=== PATIENT | male | born 1970 | race African-American/Black ===

== ENCOUNTER 2017-02-02 09:44 | Inpatient (IN) | payer OTHER ==
[2017-02-02 10:18] VITALS: BMI 24.1
--- NOTE | 2017-02-02 12:49 | HP ---
COWS - Scale Resting Pulse: 0= [place] 80 or Below Sweatin=Flushed/Facial Moisture Restless Observation: 3= Extraneous Movement Pupil Size: 2= Moderately Dilated Bone or Joint Aches: 2= Severe Diffuse Aches Runny Nose/ Eye Tearin= Runny Nose/Eyes GI Upset > 30mins: 3= Vomiting/Diarrhea Tremor Observation: 2= Slight Tremor Visible Yawning Observation: 2= >3x During Session Anxiety or Irritability: 2=Irritable/Anxious Goose Flesh Skin: 0=Smooth Skin COWS Score: 20 CIWA Score - CIWA Score Nausea/Vomitin Muscle Tremors: 3 Anxiety: 3 Agitation: 3 Paroxysmal Sweats: 2 Orientation: 0-Oriented Tacttile Disturbances: 2-Mild Itch/Numbness/Burn Auditory Disturbances: 2-Mild Harshness/Frighten Visual Disturbances: 1-Very Mild Sensitivity Headache: 2-Mild CIWA-Ar Total Score: 21 Admission ROS BHS - HPI Chief Complaint: I NEED HELP TO STOP USING HEROIN,ALCOHOL,COCAINE AND MARIJUANA Allergies/Adverse Reactions: Allergies Allergy/AdvReac Type Severity Reaction Status Date / Time shellfish derived Allergy Severe Hives Verified 02/02/17 10:35 No Known Drug Allergies Allergy Verified 02/02/17 14:09 NKDA Allergy Uncoded 02/02/17 10:35 History of Present Illness: THIS 46 YEARS OLD MALE WITH HEROIN,ALCOHOL,COCAINE AND MARIJUANA DEPENDENCE, SEEKING DETOX,LAST 2015 DID NOT RECALL FACILITY DEPRESSION NICOTINE DEPENDENCE WEIGHT LOSS NO SIGNIFICANT PERIOD OF SOBRIETY Exam Limitations: No Limitations - Ebola screening Have you traveled outside of the country in the last 21 days: No Have you had contact with anyone from an Ebola affected area: No Have you been sick,other than usual withdrawal symptoms: No Do you have a fever: No - Review of Systems Constitutional: Chills, Loss of Appetite, Malaise, Night Sweats, Changes in sleep, Weakness EENT: reports: Tearing, Nose Congestion Respiratory: reports: No Symptoms reported Cardiac: reports: No Symptoms Reported GI: reports: Diarrhea, Nausea, Vomiting, Abdominal cramping : reports: No Symptoms Reported Musculoskeletal: reports: Back Pain, Joint Pain, Muscle Pain, Joint Stiffness Integumentary: reports: Dryness Endocrine: reports: No Symptoms Reported Hematology: reports: No Symptoms Reported Psychiatric: reports: Depressed Patient History - Patient Medical History Hx Anemia: No Hx Asthma: No Hx Chronic Obstructive Pulmonary Disease (COPD): No Hx Cancer: No Hx Cardiac Disorders: No Hx Hypertension: No Hx Pacemaker: No HX Cerebrovascular Accident: No Hx Seizures: No Hx Dementia: No Hx Diabetes: No Hx Gastrointestinal Disorders: No Hx Liver Disease: No Hx Genitourinary Disorders: No Hx Sexually Transmitted Disorders: No Hx Renal Disease (ESRD): No Hx Thyroid Disease: No Hx Human Immunodeficiency Virus (HIV): No (LAST 2015 NEGATIVE) Hx Hepatitis C: No Hx Depression: Yes Hx Suicide Attempt: No Hx Bipolar Disorder: No Hx Schizophrenia: Yes (schizoaffective disorder) Other Medical History: NO SUICIDAL,NO HOMICDIAL - Patient Surgical History Past Surgical History: No Hx Neurologic Surgery: No Hx Cataract Extraction: No Hx Cardiac Surgery: No Hx Lung Surgery: No Hx Breast Surgery: No Hx Breast Biopsy: No Hx Abdominal Surgery: No Hx Appendectomy: No Hx Cholecystectomy: No Hx Genitourinary Surgery: No Hx Section: No Hx Orthopedic Surgery: No Anesthesia Reaction: No - PPD History Previous Implant?: Yes Documented Results: Negative w/o proof Implanted On Prior [facility] Admission?: No PPD to be Administered?: Yes - Smoking Cessation Smoking history: Current every day smoker Have you smoked in the past 12 months: Yes Aproximately how many cigarettes per day: 20 Hx Chewing Tobacco Use: No Initiated information on smoking cessation: Yes 'Breaking Loose' booklet given: 02/02/17 - Substance & Tx. History Hx Alcohol Use: Yes Hx Substance Use: Yes Substance Use Type: Alcohol, Cocaine, Heroin - Substances Abused Heroin Route: Injection Frequency: Daily Amount used: 20 bags Age of first use: 19 Date of Last Use: 02/01/17 Crack Route: Smoking Frequency: Daily Amount used: $200 Age of first use: 18 Date of Last Use: 02/01/17 Alcohol-vodka Route: Oral Frequency: Daily Amount used: 2 pts. Age of first use: 19 Date of Last Use: 01/31/17 Marijuana/Hashish Route: Smoking Frequency: 3-6 times per week (10$) Amount used: 10 Age of first use: 16 Date of Last Use: 02/01/17 Family Disease History - Family Disease History Family History: Denies Admission Physical Exam BHS - Vital Signs Vital Signs: Vital Signs - 24 hr 02/02/17 10:13 Temperature 97.0 F L Pulse Rate 67 Respiratory 20 Rate Blood Pressure 151/86 - Physical General Appearance: Yes: Moderate Distress, Tremorous, Irritable, Sweating, Anxious HEENTM: Yes: Normal ENT Inspection, HUGO, Pharynx Normal Respiratory: Yes: Lungs Clear, Normal Breath Sounds, No Respiratory Distress Neck: Yes: Within Normal Limits, Supple, Trachea in good position Breast: Yes: Within Normal Limits Cardiology: Yes: Within Normal Limits, Regular Rhythm, Regular Rate, S1, S2 Abdominal: Yes: Normal Bowel Sounds, Non Tender, Flat, Soft Genitourinary: Yes: Within Normal Limits Back: Yes: Within Normal Limits, Muscle Spasm Musculoskeletal: Yes: Back pain, Muscle Pain Extremities: Yes: Within Normal Limits, Tremors Neurological: Yes: bottle hop II-XII NML intact, Fully Oriented, Alert, Motor Strength 5/5 Integumentary: Yes: Dry Lymphatic: Yes: Within Normal Limits - Diagnostic (1) Opioid dependence with withdrawal Current Visit: Yes Status: Acute (2) Alcohol dependence with uncomplicated withdrawal Current Visit: Yes Status: Acute (3) Cocaine dependence Current Visit: Yes Status: Acute (4) Cannabis dependence Current Visit: Yes Status: Acute (5) Weight loss Current Visit: Yes Status: Acute (6) Schizophrenia Current Visit: Yes Status: Acute (7) Low back pain Current Visit: Yes Status: Acute Cleared for Admission [facility] - Detox or Rehab [facility] Level of Care: Medically Managed Detox Regimen/Protocol: Methadone/Librium S Breath Alcohol Content Breath Alcohol Content: 0 Urine Drug Screen - Results Drug Screen Negative: No Urine Drug Screen Results: THC-Marijuana, SUZANNE-Cocaine, OPI-Opiates
[2017-02-02] MEDS ORDERED: MAGNESIUM HYDROX 2400MG/30ML ORAL SUSPENSION 30 ML CUP PO PRN (12:59)
[2017-02-02] MEDS ORDERED: MAGNESIUM CITRATE 300 ML BOTTLE PO PRN (12:59)
[2017-02-02] MEDS ORDERED: IBUPROFEN 400 MG TABLET (FP) PO PRN (12:59)
[2017-02-02] MEDS ORDERED: LOPERAMIDE HCL 2 MG CAPSULE PO PRN (12:59)
[2017-02-02] MEDS ORDERED: P-EPHED 60MG/TRIPROLIDI 2.5MG TABLET PO PRN (12:59)
[2017-02-02] MEDS ORDERED: MENTHOL/PHENOL 1 EACH UD MM PRN (12:59)
[2017-02-02] MEDS ORDERED: guaiFENesin/D-METHORPHAN HB 10 ML UNIT-DOSE CUPS PO PRN (12:59)
[2017-02-02] MEDS ORDERED: MAG HYDROX/AL HYDROX/SIMETH 30 ML UNIT-DOSE CUP PO PRN (12:59)
[2017-02-02] MEDS: NICOTINE 21 MG/24 HOURS TOPICAL PATCH TD SCH (14:13)
[2017-02-02] MEDS: hydrOXYzine PAMOATE 25 MG CAPSULE (FP) PO PRN (14:17)
[2017-02-02] MEDS ORDERED: chlordiazePOXIDE HCL 25 MG CAPSULE PO ONE (14:30)
[2017-02-02] MEDS ORDERED: METHADONE HCL 10 MG TABLET (FOR DETOX USE ONLY) PO ONE ×2 (14:30→23:00)
[2017-02-02] MEDS: chlordiazePOXIDE HCL 25 MG CAPSULE PO SCH ×2 (17:08→22:17)
--- NOTE | 2017-02-02 17:34 | CONSULT ---
[facility] Psychiatric Consult - Data Date of interview: 02/02/17 Admission source: [facility] Identifying data: First admission to [facility] for this 46 y/o AA male seeking detox treatment on for alcohol,heroin,cocaine and marihuana dependence.Patient is single,father of two,homeless,unemployed and supported on Public Assistance. Substance Abuse History: Confirmed by patient in this session. Smoking history : Current every day smoker. Have you smoked in the past 12 months: Yes. Aproximately how many cigarettes per day: 20. Hx Chewing Tobacco Use: No. Initiated information on smoking cessation: Yes. 'Breaking Loose' booklet given : 02/02/17. - Substance & Tx. History. Hx Alcohol Use: Yes. Hx Substance Use : Yes. Substance Use Type: Alcohol, Cocaine, Heroin. - Substances Abused. Heroin. Route: Injection. Frequency: Daily. Amount used: 20 bags. Age of first use: 19. Date of Last Use: 02/01/17. Crack. Route: Smoking. Frequency: Daily. Amount used: $200. Age of first use: 18. Date of Last Use: 02/01/17. Alcohol-vodka. Route: Oral. Frequency: Daily. Amount used: 2 pts. Age of first use: 19. Date of Last Use: 01/31/17. Marijuana/Hashish. Route: Smoking. Frequency: 3-6 times per week (10$). Amount used: 10. Age of first use: 16. Date of Last Use: 02/01/17 Medical History: Hepatitis C. Psychiatric History: Diagnosed with Schizoaffective Disorder.Prescribed geodon and remeron (doses not recalled).Mr Pineda admits to a history of multiple psychiatric hospitalizations.Known to [facility].No current OPD care.Patient denies history of suicide attempts. Physical/Sexual Abuse/Trauma History: Patient denies. Additional Comment: Urine Drug Screen Results: THC-Marijuana, SUZANNE-Cocaine, OPI- Opiates.Noted. Mental Status Exam - Mental Status Exam Alert and Oriented to: Time, Place, Person Cognitive Function: Good Patient Appearance: Well Groomed Mood: Nervous, Withdrawn, Anxious Affect: Mood Congruent Patient Behavior: Fatigued, Cooperative Speech Pattern: Clear Voice Loudness: Normal Thought Process: Goal Oriented Thought Disorder: Not Present Hallucinations: Denies Suicidal Ideation: Denies Homicidal Ideation: Denies Insight/Judgement: Poor Sleep: Poorly, Difficulty falling asleep Appetite: Good Muscle strength/Tone: Normal Gait/Station: Normal Psychiatric Findings - Problem List ([place] 1, 2,3) (1) Opioid dependence with withdrawal Current Visit: Yes Status: Acute (2) Alcohol dependence with uncomplicated withdrawal Current Visit: Yes Status: Acute (3) Cannabis dependence Current Visit: Yes Status: Acute (4) Cocaine dependence Current Visit: Yes Status: Acute (5) Nicotine dependence Current Visit: Yes Status: Acute (6) Schizoaffective disorder Current Visit: Yes Status: Chronic Comment: Self-report.Non compliant with OPD care + medications. (7) Insomnia Current Visit: Yes Status: Acute - Initial Treatment Plan Initial Treatment Plan: Psychoeducation.Detoxification in progress.Medications reconciled : no Home medications.Review of pharmacy claims : no information.Will observe WITHOUT remeron or geodon for next 24 hours.Issue to be revisited in AM.Mr Pineda is made aware of careplan.Disagrees.Observation.
--- NOTE | 2017-02-02 17:55 | PN ---
BHS Progress Note Note: received nurse called that the patient wants nicotine gum continue detox
[2017-02-02] MEDS: NICOTINE POLACRILEX 4 MG GUM BUC PRN ×2 (18:54→22:33)
[2017-02-02 19:02] LABS: URINE APPEARANCE CLEAR; URINE BILIRUBIN NEGATIVE (NEGATIVE); URINE BLOOD NEGATIVE (NEGATIVE); URINE COLOR YELLOW; URINE GLUCOSE (UA) NEGATIVE (NEGATIVE); URINE KETONE NEGATIVE (NEGATIVE); URINE NITRITE NEGATIVE (NEGATIVE); URINE PROTEIN NEGATIVE (NEGATIVE); URINE UROBILINOGEN NEGATIVE mg/dL (0.2-1.0)
[2017-02-02 20:27] LABS: URINE LEUK ESTERASE Negative (NEGATIVE)
[2017-02-02] MEDS: THIAMINE HCL 100 MG TABLET (FP) PO SCH (22:16)
[2017-02-03 00:36] LABS: HIV 1 & 2 AB NEGATIVE; HIV 1 AGp24 NEGATIVE
[2017-02-03] MEDS: chlordiazePOXIDE HCL 25 MG CAPSULE PO SCH ×4 (05:54→23:01)
[2017-02-03] MEDS: ACETAMINOPHEN 325 MG TABLET (FP) PO PRN ×3 (05:56→17:43)
[2017-02-03 09:15] LABS: MCH 30.2 pg (25.7-33.7); MCHC 32.2 g/dl (32.0-35.9); MEAN PLT VOLUME 10.6 fl (7.5-11.1); PLATELET COUNT 207 K/MM3 (134-434); RDW 13.3 % (11.9-15.9); WHITE BLOOD COUNT 6.9 K/mm3 (4.0-10.0)
[2017-02-03] MEDS ORDERED: METHADONE HCL 10 MG TABLET (FOR DETOX USE ONLY) PO SCH (10:00)
[2017-02-03 11:09] LABS: ALBUMIN 3.2 g/dl (3.4-5.0); ALK PHOS 48 U/L (45-117); ANION GAP 7 (8-16); BILIRUBIN,TOTAL 0.5 mg/dL (0.2-1.0); CALCIUM 8.6 mg/dL (8.5-10.1); CO2 28 mmol/L (21-32); CREATININE 0.8 mg/dL (0.7-1.3); GLUCOSE,RANDOM 134 mg/dL (74-106); SGOT/AST 19 U/L (15-37); SGPT/ALT 27 U/L (12-78); TOT PROT 7.3 g/dl (6.4-8.2)
[2017-02-03] MEDS: PRENATAL VITAMINS W/ FOLIC ACID TABLET (FP) PO SCH (11:19)
[2017-02-03] MEDS: NICOTINE 21 MG/24 HOURS TOPICAL PATCH TD SCH (11:20)
[2017-02-03] MEDS ORDERED: MINERAL OIL/PETROLAT/WATER TOPICAL CREAM 454 GM JAR TP PRN (11:22)
[2017-02-03] MEDS: NICOTINE POLACRILEX 4 MG GUM BUC PRN ×2 (11:25→14:35)
[2017-02-03] MEDS ORDERED: BACITRACIN 0.9 GM PACKET ONE (11:38)
[2017-02-03] MEDS: BACITRACIN 0.9 GM PACKET TP SCH ×2 (11:39→23:01)
--- NOTE | 2017-02-03 12:11 | PN ---
BHS COWS - Scale Resting Pulse: 0= [place] 80 or Below Sweatin= Chills/Flushing Restless Observation: 3= Extraneous Movement Pupil Size: 2= Moderately Dilated Bone or Joint Aches: 2= Severe Diffuse Aches Runny Nose/ Eye Tearin= Runny Nose/Eyes GI Upset > 30mins: 1= Stomach Cramp Tremor Observation of Outstretched Hands: 2= Slight Tremor Visible Yawning Observation: 0= None Anxiety or Irritability: 2=Irritable/Anxious Goose Flesh Skin: 0=Smooth Skin COWS Score: 15 BHS Progress Note (SOAP) Objective: 02/03/17 12:10 achy, anxious, sweating Assessment: 02/03/17 12:10 withdrawal Plan: detox protocol
[2017-02-03] MEDS ORDERED: COLLOIDAL OATMEAL 1 BAR EACH TP PRN ×2 (12:32→12:41)
--- NOTE | 2017-02-03 13:24 | EKG ---
Test Reason : Blood Pressure : / mmHG Vent. Rate : 066 BPM Atrial Rate : 066 BPM P-R Int : 134 ms QRS Dur : 082 ms QT Int : 420 ms P-R-T Axes : 062 069 065 degrees QTc Int : 440 ms NORMAL SINUS RHYTHM NORMAL ECG NO PREVIOUS ECGS AVAILABLE Confirmed by VANNESA JONES, MICHAEL ([id number]) on 02/03/2017 1:23:54 PM Referred By: Confirmed By:MICHAEL GRANADO MD
[2017-02-03 14:26] LABS: SICKLE CELL SCREEN NEGATIVE (NEGATIVE)
[2017-02-03] MEDS: CYCLOBENZAPRINE HCL 5 MG TABLET PO SCH ×2 (14:35→23:00)
[2017-02-03] MEDS: chlordiazePOXIDE HCL 25 MG CAPSULE PO PRN (14:45)
[2017-02-03] MEDS: LIDOCAINE 5% TOPICAL PATCH TP SCH (19:00)
[2017-02-03] MEDS: hydrOXYzine PAMOATE 25 MG CAPSULE (FP) PO PRN (20:00)
[2017-02-03] MEDS: NAPROXEN 500 MG TABLET (FP) PO SCH (23:00)
[2017-02-03] MEDS: THIAMINE HCL 100 MG TABLET (FP) PO SCH (23:01)
[2017-02-03] MEDS: LIDOCAINE PATCH REMOVAL MC SCH (23:05)
[2017-02-03] MEDS: diphenhydrAMINE HCL 50 MG CAPSULE PO PRN (23:09)
[2017-02-04] MEDS: CYCLOBENZAPRINE HCL 5 MG TABLET PO SCH ×3 (06:26→22:29)
[2017-02-04] MEDS: chlordiazePOXIDE HCL 25 MG CAPSULE PO SCH ×2 (06:27→10:56)
[2017-02-04] MEDS: PRENATAL VITAMINS W/ FOLIC ACID TABLET (FP) PO SCH (10:55)
[2017-02-04] MEDS: BACITRACIN 0.9 GM PACKET TP SCH ×2 (10:56→22:29)
[2017-02-04] MEDS: METHADONE HCL 5 MG TABLET (FOR DETOX USE ONLY) PO SCH (10:56)
[2017-02-04] MEDS: NAPROXEN 500 MG TABLET (FP) PO SCH ×2 (10:56→22:29)
[2017-02-04] MEDS: NICOTINE 21 MG/24 HOURS TOPICAL PATCH TD SCH (10:57)
[2017-02-04] MEDS: LIDOCAINE 5% TOPICAL PATCH TP SCH (10:57)
[2017-02-04] MEDS: NICOTINE POLACRILEX 4 MG GUM BUC PRN ×4 (13:39→22:39)
[2017-02-04] MEDS: MINERAL OIL/PETROLAT/WATER TOPICAL CREAM 454 GM JAR TP PRN ×2 (13:49→22:32)
--- NOTE | 2017-02-04 14:24 | PN ---
[facility] CIWA - CIWA Score Nausea/Vomitin-No Nausea/No Vomiting Muscle Tremors: 4-Moderate,w/Arms Extend Anxiety: 3 Agitation: 3 Paroxysmal Sweats: 3 Orientation: 0-Oriented Tacttile Disturbances: 1-Very Mild Itch/Numbness Auditory Disturbances: 0-None Visual Disturbances: 0-None Headache: 0-None Present CIWA-Ar Total Score: 14 S COWS - Scale Resting Pulse: 0= [place] 80 or Below Sweatin=Flushed/Facial Moisture Restless Observation: 1= Difficult to Sit Still Pupil Size: 0= Normal to Room Light Bone or Joint Aches: 2= Severe Diffuse Aches Runny Nose/ Eye Tearin= Nasal Congestion GI Upset > 30mins: 1= Stomach Cramp Tremor Observation of Outstretched Hands: 2= Slight Tremor Visible Yawning Observation: 1= 1-2x During Session Anxiety or Irritability: 2=Irritable/Anxious Goose Flesh Skin: 0=Smooth Skin COWS Score: 12 S Progress Note (SOAP) Subjective: Anxiety,tremors,sweating,interrupted sleep,restless,muscle aches/spasm. Objective: 02/04/17 14:25 Vital Signs - 8 hr 02/04/17 10:00 Temperature 98.0 F Pulse Rate 74 Respiratory 16 Rate Blood Pressure 125/81 Laboratory Last Values WBC 6.9 K/mm3 (4.0-10.0) 02/03/17 06:00 RBC 4.26 M/mm3 (4.00-5.60) 02/03/17 06:00 Hgb 12.9 GM/dL (11.7-16.9) 02/03/17 06:00 Hct 40.0 % (35.4-49) 02/03/17 06:00 MCV 94.0 fl (80-96) 02/03/17 06:00 MCH 30.2 pg (25.7-33.7) 02/03/17 06:00 MCHC 32.2 g/dl (32.0-35.9) 02/03/17 06:00 RDW 13.3 % (11.9-15.9) 02/03/17 06:00 Plt Count 207 K/MM3 (134-434) 02/03/17 06:00 MPV 10.6 fl (7.5-11.1) 02/03/17 06:00 Sickle Cell Screen Negative (NEGATIVE) 02/03/17 06:00 Sodium 137 mmol/L (136-145) 02/03/17 06:00 Potassium 3.8 mmol/L (3.5-5.1) 02/03/17 06:00 Chloride 102 mmol/L (98-107) 02/03/17 06:00 Carbon Dioxide 28 mmol/L (21-32) 02/03/17 06:00 Anion Gap 7 (8-16) L 02/03/17 06:00 BUN 6 mg/dL (7-18) L 02/03/17 06:00 Creatinine 0.8 mg/dL (0.7-1.3) 02/03/17 06:00 Creat Clearance w eGFR > 60 (>60) 02/03/17 06:00 Random Glucose 134 mg/dL (74-106) H 02/03/17 06:00 Calcium 8.6 mg/dL (8.5-10.1) 02/03/17 06:00 Total Bilirubin 0.5 mg/dL (0.2-1.0) 02/03/17 06:00 AST 19 U/L (15-37) 02/03/17 06:00 ALT 27 U/L (12-78) 02/03/17 06:00 Alkaline Phosphatase 48 U/L (45-117) 02/03/17 06:00 Total Protein 7.3 g/dl (6.4-8.2) 02/03/17 06:00 Albumin 3.2 g/dl (3.4-5.0) L 02/03/17 06:00 Urine Color Yellow 02/02/17 18:00 Urine Appearance Clear 02/02/17 18:00 Urine pH 7.0 (5.0-8.0) 02/02/17 18:00 Ur Specific [place] 1.015 (1.005-1.025) 02/02/17 18:00 Urine Protein Negative (NEGATIVE) 02/02/17 18:00 Urine Glucose (UA) Negative (NEGATIVE) 02/02/17 18:00 Urine Ketones Negative (NEGATIVE) 02/02/17 18:00 Urine Blood Negative (NEGATIVE) 02/02/17 18:00 Urine Nitrite Negative (NEGATIVE) 02/02/17 18:00 Urine Bilirubin Negative (NEGATIVE) 02/02/17 18:00 Urine Urobilinogen Negative mg/dL (0.2-1.0) 02/02/17 18:00 Ur Leukocyte Esterase Negative (NEGATIVE) 02/02/17 18:00 RPR Titer Nonreactive (NONREACTIVE) 02/03/17 06:00 HIV 1&2 Antibody Screen Negative 02/02/17 11:00 HIV P24 Antigen Negative 02/02/17 11:00 labs noted Assessment: 02/04/17 14:28 Withdrawal sx. Plan: Continue detox
[2017-02-04] MEDS: chlordiazePOXIDE HCL 25 MG CAPSULE PO PRN (15:35)
[2017-02-04] MEDS: ACETAMINOPHEN 325 MG TABLET (FP) PO PRN (17:49)
[2017-02-04] MEDS: hydrOXYzine PAMOATE 50 MG CAPSULE (FP) PO PRN (17:49)
[2017-02-04] MEDS: chlordiazePOXIDE 5 MG CAPSULE PO SCH ×2 (17:49→22:29)
[2017-02-04] MEDS: THIAMINE HCL 100 MG TABLET (FP) PO SCH (22:29)
[2017-02-04] MEDS: diphenhydrAMINE HCL 50 MG CAPSULE PO PRN (22:30)
[2017-02-04] MEDS: LIDOCAINE PATCH REMOVAL MC SCH (22:32)
[2017-02-05] MEDS: chlordiazePOXIDE 5 MG CAPSULE PO SCH ×2 (06:01→10:27)
[2017-02-05] MEDS: CYCLOBENZAPRINE HCL 5 MG TABLET PO SCH (06:01)
[2017-02-05] MEDS: ACETAMINOPHEN 325 MG TABLET (FP) PO PRN ×2 (06:03→18:29)
[2017-02-05] MEDS: NICOTINE POLACRILEX 4 MG GUM BUC PRN ×3 (06:05→12:54)
--- NOTE | 2017-02-05 09:42 | PN ---
BHS Progress Note (SOAP) Subjective: ALERT,IRRITABLE,ANXIOUS,INTERRUPTED SLEEP,PAIN IN THE BACK Objective: 02/05/17 09:41 Vital Signs Temperature 98.1 F 02/05/17 06:24 Pulse Rate 75 02/05/17 06:24 Respiratory Rate 18 02/05/17 06:24 Blood Pressure 133/63 02/05/17 06:24 O2 Sat by Pulse Oximetry (%) Assessment: 02/05/17 09:41 WITHDRAWAL SYMPTOM Plan: CONTINUE DETOX
[2017-02-05] MEDS: BACITRACIN 0.9 GM PACKET TP SCH ×2 (10:26→22:39)
[2017-02-05] MEDS: PRENATAL VITAMINS W/ FOLIC ACID TABLET (FP) PO SCH (10:27)
[2017-02-05] MEDS: cloNIDine HCL 0.1 MG TABLET PO SCH ×2 (10:27→22:39)
[2017-02-05] MEDS: NICOTINE 21 MG/24 HOURS TOPICAL PATCH TD SCH (10:27)
[2017-02-05] MEDS: LIDOCAINE 5% TOPICAL PATCH TP SCH (10:27)
[2017-02-05] MEDS: METHADONE HCL 5 MG TABLET (FOR DETOX USE ONLY) PO SCH (10:27)
[2017-02-05] MEDS: IBUPROFEN 400 MG TABLET (FP) PO PRN ×2 (10:28→22:40)
[2017-02-05] MEDS: CYCLOBENZAPRINE HCL 10 MG TABLET (FP) PO PRN ×2 (10:32→22:39)
--- NOTE | 2017-02-05 13:19 | PN ---
Psychiatric Progress Note Vital Signs: Vital Signs Period Temp Pulse Resp BP Sys/Conte Pulse Ox Last 24 Hr 97.7 F-98.8 F 75-85 16-20 121-134/63-78 Date of Session: 02/05/17 Chief Complaint:: anxiety, agitation HPI: Patoent reports anxiety, agitations, asking for medications, reports taking Zyprexa 20mg po qhs in the past, currently irritable and intrussive, denies auditory hallucionatioans, denies suicidal ideation Current Medications: Active Medications Generic Name Dose Route Start Last Admin Trade Name Freq PRN Reason Stop Dose Admin Acetaminophen 650 mg 02/02/17 12:59 02/05/17 06:03 Tylenol - PO 650 mg Q4H PRN Administration FEVER OR PAIN Al Hydroxide/Mg Hydroxide 30 ml 02/02/17 12:59 Mylanta Oral Suspension - PO Q6H PRN DYSPEPSIA Bacitracin 1 gm 02/05/17 10:37 Bacitracin - TP BID TISHA Chlordiazepoxide HCl 10 mg 02/05/17 17:00 Librium - PO 02/06/17 11:01 [id number] TISHA Clonidine 0.1 mg 02/05/17 10:00 02/05/17 10:27 Catapres - PO 0.1 mg BID TISHA Administration Colloidal Oatmeal 1 applic 02/03/17 12:41 02/03/17 13:08 Aveeno Soap - TP 1 applic DAILY PRN Administration HYGEINE Cyclobenzaprine HCl 10 mg 02/05/17 09:32 02/05/17 10:32 Flexeril - PO 10 mg TID PRN Administration MUSCLE SPASMS Diphenhydramine HCl 50 mg 02/02/17 12:59 02/04/17 22:30 Benadryl - PO 50 mg HSMR1 PRN Administration INSOMNIA Diphenhydramine HCl 50 mg 02/05/17 13:13 Benadryl - PO 02/05/17 13:14 NOW STA Eucalyptus/Menthol/Phenol/Sorbitol 1 each 02/02/17 12:59 Cepastat Lozenge - MM Q4H PRN SORE THROAT Guaifenesin 10 ml 02/02/17 12:59 Robitussin Dm - PO Q6H PRN COUGH Haloperidol 5 mg 02/05/17 13:12 Haldol - PO 02/05/17 13:13 NOW STA Hydroxyzine Pamoate 25 mg 02/02/17 12:59 02/03/17 20:00 Vistaril - PO 25 mg Q4H PRN Administration AGITATION Hydroxyzine Pamoate 50 mg 02/03/17 11:32 02/04/17 17:49 Vistaril - PO 50 mg Q6H PRN Administration FOR ITCHING Ibuprofen 800 mg 02/05/17 09:29 02/05/17 10:28 Motrin - PO 800 mg Q8H PRN Administration FEVER Lidocaine 1 patch 02/03/17 19:00 02/05/17 10:27 Lidoderm Patch - TP 1 patch DAILY TISHA Administration Loperamide HCl 4 mg 02/02/17 12:59 Imodium - PO Q6H PRN DIARRHEA Magnesium Citrate 300 ml 02/02/17 12:59 Citroma - PO Q48H PRN CONSTIPATION Magnesium Hydroxide 30 ml 02/02/17 12:59 Milk Of Magnesia - PO DAILY PRN CONSTIPATION Methadone HCl 10 mg 02/06/17 10:00 Dolophine - PO 02/06/17 10:01 DAILY TISHA Methadone HCl 5 mg 02/07/17 06:00 Dolophine - PO 02/07/17 06:01 DAILY@0600 [facility] Miscellaneous 1 each 02/03/17 22:00 02/04/17 22:32 Lidoderm Patch Removal MC Not Given DAILY@2200 [facility] Multi-Ingredient Lotion 1 applic 02/03/17 12:33 02/04/17 22:32 Eucerin (Large Jar) - TP 1 applic BID PRN Administration DRY SKIN Nicotine 21 mg 02/02/17 13:30 02/05/17 10:27 Nicoderm Patch - TD 21 mg DAILY TISHA Administration Nicotine Polacrilex 4 mg 02/02/17 17:54 02/05/17 12:54 Nicorette Gum - BUC 4 mg Q2H PRN Administration NICOTINE REPLACEMENT RX Olanzapine 10 mg 02/05/17 22:00 Zyprexa - PO HS TISHA Multivit/Folic Acid/Iron 1 tab 02/03/17 10:00 02/05/17 10:27 Vitamins ([facility]) - PO 1 tab DAILY TISHA Administration Pseudoephedrine/Triprolidine 1 combo 02/02/17 12:59 Actifed - PO TID PRN NASAL CONGESTION Thiamine HCl 100 mg 02/02/17 22:00 02/04/17 22:29 Vitamin B1 - PO 100 mg HS TISHA Administration Medication(s) Change(s): Zyprexa 10mg po qhs. Haldol 5mg po stat. Benadryl 50mg po stat Mental Status Exam - Mental Status Exam Alert and Oriented to: Person Cognitive Function: Fair Mood: Withdrawn, Anxious, Irritable Affect: Labile Patient Behavior: Guarded, Wandering, Agitated Speech Pattern: Excessive Voice Loudness: Normal Thought Process: Circumstantial Thought Disorder: Present Hallucinations: Denies Suicidal Ideation: Denies Homicidal Ideation: Denies Insight/Judgement: Fair Sleep: Difficulty falling asleep Appetite: Fair Muscle strength/Tone: Normal Gait/Station: Normal Additional Comments: Zyprexa 10mg po qhs. Haldol 5mg po stat. Benadryl 50mg po stat Psychiatric Treatment Plan - Problem List (1) Alcohol dependence with uncomplicated withdrawal Current Visit: Yes (2) Cannabis dependence Current Visit: Yes (3) Cocaine dependence Current Visit: Yes (4) Nicotine dependence Current Visit: Yes (5) Opioid dependence with withdrawal Current Visit: Yes (6) Schizophrenia Current Visit: Yes (7) Schizoaffective disorder Current Visit: Yes Comment: Self-report.Non compliant with OPD care + medications. Initial treatment plan: Zyprexa 10mg po qhs. Haldol 5mg po stat. Benadryl 50mg po stat
[2017-02-05] MEDS ORDERED: diphenhydrAMINE HCL 50 MG CAPSULE PO ONE (13:45)
[2017-02-05] MEDS ORDERED: HALOPERIDOL 5 MG TABLET (FP) PO ONE (13:45)
[2017-02-05] MEDS: chlordiazePOXIDE HCL 10 MG CAPSULE PO SCH ×2 (18:28→22:39)
[2017-02-05] MEDS: METHYL SALICYLATE/MENTHOL OINT 30 GM TUBE TP SCH (22:39)
[2017-02-05] MEDS: OLANZapine 10 MG TABLET PO SCH (22:39)
[2017-02-05] MEDS: LIDOCAINE PATCH REMOVAL MC SCH (22:45)
[2017-02-05] MEDS: THIAMINE HCL 100 MG TABLET (FP) PO SCH (22:45)
[2017-02-06] MEDS: chlordiazePOXIDE HCL 10 MG CAPSULE PO SCH ×2 (08:33→11:00)
[2017-02-06] MEDS ORDERED: METHADONE HCL 10 MG TABLET (FOR DETOX USE ONLY) PO SCH (10:00)
[2017-02-06] MEDS: CYCLOBENZAPRINE HCL 10 MG TABLET (FP) PO PRN ×2 (11:00→21:12)
[2017-02-06] MEDS: PRENATAL VITAMINS W/ FOLIC ACID TABLET (FP) PO SCH (11:06)
[2017-02-06] MEDS: cloNIDine HCL 0.1 MG TABLET PO SCH ×2 (11:06→23:25)
[2017-02-06] MEDS: BACITRACIN 0.9 GM PACKET TP SCH ×2 (11:07→23:20)
[2017-02-06] MEDS: IBUPROFEN 400 MG TABLET (FP) PO PRN ×2 (11:08→21:11)
--- NOTE | 2017-02-06 11:37 | PN ---
S Progress Note (SOAP) Subjective: alert,irritable,anxious,interrupted sleep,low back pain Objective: 02/06/17 11:35 Vital Signs Temperature 96.1 F L 02/06/17 10:22 Pulse Rate 75 02/06/17 10:22 Respiratory Rate 18 02/06/17 10:22 Blood Pressure 105/67 02/06/17 10:22 O2 Sat by Pulse Oximetry (%) Assessment: 02/06/17 11:36 withdrawal symptom Plan: continue detox,discharge in am
[2017-02-06] MEDS: NICOTINE POLACRILEX 4 MG GUM BUC PRN ×2 (13:36→21:12)
[2017-02-06] MEDS: NICOTINE 21 MG/24 HOURS TOPICAL PATCH TD SCH (13:36)
[2017-02-06] MEDS: LIDOCAINE 5% TOPICAL PATCH TP SCH (13:39)
[2017-02-06] MEDS: METHYL SALICYLATE/MENTHOL OINT 30 GM TUBE TP SCH ×2 (13:39→23:24)
[2017-02-06] MEDS: MINERAL OIL/PETROLAT/WATER TOPICAL CREAM 454 GM JAR TP PRN (15:07)
[2017-02-06] MEDS: hydrOXYzine PAMOATE 50 MG CAPSULE (FP) PO PRN (15:07)
[2017-02-06] MEDS: THIAMINE HCL 100 MG TABLET (FP) PO SCH (23:25)
[2017-02-06] MEDS: LIDOCAINE PATCH REMOVAL MC SCH (23:25)
[2017-02-06] MEDS: OLANZapine 10 MG TABLET PO SCH (23:26)
[2017-02-07] MEDS: IBUPROFEN 400 MG TABLET (FP) PO PRN (05:57)
[2017-02-07] MEDS: CYCLOBENZAPRINE HCL 10 MG TABLET (FP) PO PRN (05:58)
[2017-02-07] MEDS: NICOTINE POLACRILEX 4 MG GUM BUC PRN (06:00)
[2017-02-07] MEDS ORDERED: METHADONE HCL 5 MG TABLET (FOR DETOX USE ONLY) PO SCH (06:00)
--- NOTE | 2017-02-07 09:58 | DS ---
[facility] Detox Discharge Summary Admission Date: 02/02/17 Discharge Date: 02/07/17 - History Present History: Alcohol Dependence, Cannabis Dependence, Cocaine Dependence, Opioid Dependence Additional Comments: follow up with after care program as arrangement Pertinent Past History: schizophrenia low back pain weight loss - Physical Exam Results Vital Signs: Vital Signs Temperature 97.4 F L 02/07/17 06:38 Pulse Rate 74 02/07/17 06:38 Respiratory Rate 18 02/07/17 06:38 Blood Pressure 118/54 02/07/17 06:38 O2 Sat by Pulse Oximetry (%) - Treatment Hospital Course: Detox Protocol Followed, Detoxed Safely, Responded well, Discharged Condition Good Patient has Accepted a Rehab Referral to: declined - Medication Discharge Medications: Ambulatory Orders Olanzapine [ZyPREXA -] 10 mg PO HS #30 tablet 02/05/17 - Diagnosis (1) Opioid dependence with withdrawal Current Visit: Yes Status: Acute (2) Alcohol dependence with uncomplicated withdrawal Current Visit: Yes Status: Acute (3) Cocaine dependence Current Visit: Yes Status: Acute (4) Cannabis dependence Current Visit: Yes Status: Acute (5) Weight loss Current Visit: Yes Status: Acute (6) Schizophrenia Current Visit: Yes Status: Acute (7) Low back pain Current Visit: Yes Status: Acute - AMA Did Patient Leave Against Medical Advice: No
[2017-02-07] MEDS: LIDOCAINE 5% TOPICAL PATCH TP SCH (10:00)
[2017-02-07] MEDS: METHYL SALICYLATE/MENTHOL OINT 30 GM TUBE TP SCH (10:00)
[2017-02-07] MEDS: NICOTINE 21 MG/24 HOURS TOPICAL PATCH TD SCH (10:00)
[2017-02-07] MEDS: BACITRACIN 0.9 GM PACKET TP SCH (10:05)
[2017-02-07] MEDS: cloNIDine HCL 0.1 MG TABLET PO SCH (10:06)
[2017-02-07] MEDS: PRENATAL VITAMINS W/ FOLIC ACID TABLET (FP) PO SCH (10:06)
[2017-02-07 11:15] VITALS: BP 114/72; PULSE 76; TEMP 96.7
== END 2017-02-07 10:18 | disposition home or self-care (01) | DRG 773 ==
LOC: YASAS 09:44 → Y6N 12:15
PROVIDERS: ADMIT Internal Medicine; ATTEND Internal Medicine
PROC: HZ2ZZZZ Detoxification Services for Substance Abuse Treatment (ICD-10-PCS; principal; 2017-02-02)
DX: F11.23 Opioid dependence with withdrawal (principal); F10.230 Alcohol dependence with withdrawal, uncomplicated; F14.20 Cocaine dependence, uncomplicated; F12.20 Cannabis dependence, uncomplicated; F17.210 Nicotine dependence, cigarettes, uncomplicated; F20.9 Schizophrenia, unspecified; F25.9 Schizoaffective disorder, unspecified; M54.5 Low back pain; G47.00 Insomnia, unspecified; Z91.013 Allergy to seafood; Z87.898 Personal history of other specified conditions; Z59.0 Homelessness
CPT/HCPCS: 36415; 80053; 81003; 85027; 85660; 86593; 87389; 93005; 93010

== ENCOUNTER 2017-05-10 08:29 | Inpatient (IN) | payer OTHER ==
[2017-05-10 09:46] VITALS: BMI 24.0
--- NOTE | 2017-05-10 11:21 | HP ---
COWS - Scale Resting Pulse: 0= [place] 80 or Below Sweatin= Chills/Flushing Restless Observation: 3= Extraneous Movement Pupil Size: 2= Moderately Dilated Bone or Joint Aches: 4=Acute Joint/Muscle Pain Runny Nose/ Eye Tearin= Nasal Congestion GI Upset > 30mins: 2= Nausea/Diarrhea (AND STOMACH CRAMPS) Tremor Observation: 1= Tremor [place], Not Seen Yawning Observation: 1= 1-2x During Session Anxiety or Irritability: 2=Irritable/Anxious Goose Flesh Skin: 0=Smooth Skin COWS Score: 17 CIWA Score - CIWA Score Nausea/Vomitin-Int. Nausea w/Dry Heave Muscle Tremors: 3 Anxiety: 4-Mod. Anxious/Guarded Agitation: 4-Moderately Restless Paroxysmal Sweats: 1-Minimal Palms Moist Orientation: 0-Oriented Tacttile Disturbances: 3-Moderate Itch/Numb/Burn Auditory Disturbances: 0-None Visual Disturbances: 0-None Headache: 0-None Present CIWA-Ar Total Score: 19 Admission ROS S - HPI Chief Complaint: WITHDRAWAL SX FROM HEROIN AND ALCOHOL Allergies/Adverse Reactions: Allergies Allergy/AdvReac Type Severity Reaction Status Date / Time shellfish derived Allergy Severe Hives Verified 05/10/17 10:35 No Known Drug Allergies Allergy Verified 05/10/17 10:35 NKDA Allergy Uncoded 05/10/17 10:35 History of Present Illness: 46 Y/O AA/MALE WITH A HX OF HEROIN,COCAINE AND ALCOHOL DEPENDENCE SEEKING DETOX TX. PT HAD PREVIOUS TX EPISODE. PT REPORTS HE WAS AT [facility] YESTERDAY FOR FEET PAIN/SWELLING. REPORTS HAS BEEN UP ON HIS FEET ON THE STREETS STATING "I'M HOMELESS". WILL LIKE TO GO TO REHAB AFTER DETOX. Exam Limitations: No Limitations - Ebola screening Have you traveled outside of the country in the last 21 days: No (N) Have you had contact with anyone from an Ebola affected area: No Have you been sick,other than usual withdrawal symptoms: No Do you have a fever: No - Review of Systems Constitutional: Chills, Loss of Appetite, Night Sweats, Changes in sleep EENT: reports: Blurred Vision, Tearing, Nose Congestion Respiratory: reports: No Symptoms reported Cardiac: reports: Lightheadedness GI: reports: Blood Streaked Bowels, Constipated (OIC), Diarrhea, Nausea, Rectal Bleeding (DUE TO HARD STOOL), Vomiting, Abdominal cramping : reports: Frequency Musculoskeletal: reports: Back Pain, Joint Pain, Muscle Pain Integumentary: reports: Bruising (IVD INJ SITES ON BOTH ELBOWS.), Dryness, Rash (ITCHY,DRY,PAINFUL FEET) Neuro: reports: Headache, Numbness, Tingling, Tremors, Unsteady Gait, Dizziness Endocrine: reports: No Symptoms Reported Hematology: reports: No Symptoms Reported Psychiatric: reports: Orientated x3, Anxious, Depressed Other Systems: Reviewed and Negative Patient History - Patient Medical History Hx Anemia: No Hx Asthma: No Hx Chronic Obstructive Pulmonary Disease (COPD): No Hx Cancer: No Hx Cardiac Disorders: No Hx Hypertension: No Hx Pacemaker: No HX Cerebrovascular Accident: No Hx Seizures: No Hx Dementia: No Hx Diabetes: No Hx Gastrointestinal Disorders: No Hx Liver Disease: No Hx Genitourinary Disorders: No Hx Sexually Transmitted Disorders: No Hx Renal Disease (ESRD): No Hx Thyroid Disease: No Hx Human Immunodeficiency Virus (HIV): No ( NEGATIVE HX) Hx Hepatitis C: No Hx Depression: Yes Hx Suicide Attempt: Yes (Tried to hang himself as a teen;DENIES CURRENT S/H/I) Hx Bipolar Disorder: No Hx Schizophrenia: No - Patient Surgical History Past Surgical History: Yes Hx Neurologic Surgery: Yes (Spinal sx for an infection in [facility] 04/01 ) Hx Cataract Extraction: No Hx Cardiac Surgery: No Hx Lung Surgery: No Hx Breast Surgery: No Hx Breast Biopsy: No Hx Abdominal Surgery: No Hx Appendectomy: No Hx Cholecystectomy: No Hx Genitourinary Surgery: No Hx Orthopedic Surgery: No Anesthesia Reaction: No - PPD History Previous Implant?: Yes Documented Results: Negative w/proof Implanted On Prior R Admission?: Yes Date: 02/04/17 Results: 0 mm PPD to be Administered?: No - Reproductive History Patient is a Female of Child Bearing Age (11 -55 yrs old): No (MALE ) - Smoking Cessation Smoking history: Current every day smoker Have you smoked in the past 12 months: Yes Aproximately how many cigarettes per day: 20 Hx Chewing Tobacco Use: No Initiated information on smoking cessation: Yes 'Breaking Loose' booklet given: 05/10/17 - Substance & Tx. History Hx Alcohol Use: Yes (VODKA) Hx Substance Use: Yes (HEROIN/COCAINE) Substance Use Type: Alcohol, Cocaine, Heroin Hx Substance Use Treatment: Yes (LAST TX AT [facility]) - Substances Abused Heroin Route: Injection Frequency: Daily Amount used: 10 BAGS Age of first use: 19 Date of Last Use: 05/09/17 Alcohol Route: Oral Frequency: Daily Amount used: 1 PINT VODKA Age of first use: 14 Date of Last Use: 05/09/17 Cocaine Route: Smoking Frequency: Daily Amount used: $50 Age of first use: 17 Date of Last Use: 05/09/17 Family Disease History - Family Disease History Family Disease History: Diabetes: Sister (2 SISTERS), Other: Father (ALCOHOLISM- ) Admission Physical Exam S - Vital Signs Vital Signs: Vital Signs - 24 hr 05/10/17 09:44 Temperature 97 F L Pulse Rate 62 Respiratory 20 Rate Blood Pressure 141/84 - Physical General Appearance: Yes: Moderate Distress, Irritable, Anxious, Other (FATIGUE) HEENTM: Yes: EOMI, Normocephalic, HUGO, Pharynx Normal, Nasal Congestion Respiratory: Yes: Chest Non-Tender, Lungs Clear, Normal Breath Sounds, No Respiratory Distress Neck: Yes: No masses,lesions,Nodules, Supple, Trachea in good position Breast: Yes: Breast Exam Deferred Cardiology: Yes: Regular Rhythm, Regular Rate, S1, S2 Abdominal: Yes: Normal Bowel Sounds, Non Tender, Flat, Soft Genitourinary: Yes: Other (N/C) Back: Yes: Within Normal Limits Musculoskeletal: Yes: full range of Motion, Gait Steady Extremities: Yes: Normal Range of Motion, Non-Tender, Swelling (BOTH FEET.) 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 NO SWELLING FROM ANKLES UPWARDS. - Diagnostic (1) Alcohol dependence with uncomplicated withdrawal Current Visit: Yes Status: Acute (2) Cocaine dependence Current Visit: Yes Status: Acute Qualifiers: Substance use status: uncomplicated Qualified Code(s): F14.20 - Cocaine dependence, uncomplicated (3) Low back pain Current Visit: Yes Status: Chronic Qualifiers: Chronicity: chronic (4) Nicotine dependence Current Visit: Yes Status: Acute Qualifiers: Substance use status: in withdrawal (5) Opioid dependence with withdrawal Current Visit: Yes Status: Acute (6) Weight loss Current Visit: Yes Status: Acute (7) Tinea pedis Current Visit: Yes Status: Acute Qualifiers: Laterality: bilateral Qualified Code(s): B35.3 - Tinea pedis (8) Bilateral swelling of feet Current Visit: Yes Status: Acute Cleared for Admission [facility] - Detox or Rehab [facility] Level of Care: Medically Managed Detox Regimen/Protocol: Methadone/Librium [facility] Breath Alcohol Content Breath Alcohol Content: 0 Urine Drug Screen - Results Drug Screen Negative: No Urine Drug Screen Results: SUZANNE-Cocaine, OPI-Opiates, BZO-Benzodiazepines, MTD- Methadone
[2017-05-10] MEDS ORDERED: MAG HYDROX/AL HYDROX/SIMETH 30 ML UNIT-DOSE CUP PO PRN (11:47)
[2017-05-10] MEDS ORDERED: MAGNESIUM HYDROX 2400MG/30ML ORAL SUSPENSION 30 ML CUP PO PRN (11:47)
[2017-05-10] MEDS ORDERED: LOPERAMIDE HCL 2 MG CAPSULE PO PRN (11:47)
[2017-05-10] MEDS ORDERED: guaiFENesin/D-METHORPHAN HB 10 ML UNIT-DOSE CUPS PO PRN (11:47)
[2017-05-10] MEDS ORDERED: ACETAMINOPHEN 325 MG TABLET (FP) PO PRN (11:47)
[2017-05-10] MEDS ORDERED: chlordiazePOXIDE HCL 25 MG CAPSULE PO PRN (11:47)
[2017-05-10] MEDS ORDERED: MAGNESIUM CITRATE 300 ML BOTTLE PO PRN (11:47)
[2017-05-10] MEDS ORDERED: IBUPROFEN 400 MG TABLET (FP) PO PRN (11:47)
[2017-05-10] MEDS ORDERED: MENTHOL/PHENOL 1 EACH UD MM PRN (11:47)
[2017-05-10] MEDS ORDERED: P-EPHED 60MG/TRIPROLIDI 2.5MG TABLET PO PRN (11:47)
[2017-05-10] MEDS ORDERED: chlordiazePOXIDE HCL 25 MG CAPSULE PO ONE (12:09)
[2017-05-10] MEDS ORDERED: METHADONE HCL 10 MG TABLET (FOR DETOX USE ONLY) PO ONE ×2 (12:12→23:00)
[2017-05-10] MEDS: BACITRACIN 0.9 GM PACKET TP SCH ×2 (13:39→22:54)
[2017-05-10] MEDS: TOLNAFTATE 1% CREAM 15 GM TUBE TP SCH ×2 (13:41→22:54)
[2017-05-10] MEDS: NICOTINE 14 MG/24 HOURS TOPICAL PATCH TD SCH (13:41)
[2017-05-10] MEDS: NICOTINE POLACRILEX 2 MG GUM BUC PRN ×2 (13:41→23:11)
[2017-05-10 15:29] LABS: ALBUMIN 3.3 g/dl (3.4-5.0); ANION GAP 9 (8-16); BILIRUBIN,TOTAL 0.2 mg/dL (0.2-1.0); BLOOD UREA NITROGEN 11 mg/dL (7-18); CALCIUM 8.6 mg/dL (8.5-10.1); CHLORIDE 108 mmol/L (98-107); CO2 29 mmol/L (21-32); GLUCOSE,RANDOM 132 mg/dL (74-106); POTASSIUM 3.9 mmol/L (3.5-5.1); SGOT/AST 35 U/L (15-37); SGPT/ALT 34 U/L (12-78); SODIUM 146 mmol/L (136-145)
[2017-05-10 15:30] LABS: ALK PHOS 64 U/L (45-117); TOT PROT 7.2 g/dl (6.4-8.2)
[2017-05-10 15:46] LABS: HEMATOCRIT 36.1 % (35.4-49); HEMOGLOBIN 11.7 GM/dL (11.7-16.9); MCH 29.3 pg (25.7-33.7); MCHC 32.5 g/dl (32.0-35.9); MEAN CELL VOLUME 90.4 fl (80-96); MEAN PLT VOLUME 9.8 fl (7.5-11.1); PLATELET COUNT 231 K/MM3 (134-434); RDW 17.6 % (11.9-15.9); WHITE BLOOD COUNT 3.7 K/mm3 (4.0-10.0)
[2017-05-10 16:55] LABS: URINE APPEARANCE CLEAR; URINE BILIRUBIN NEGATIVE (NEGATIVE); URINE BLOOD NEGATIVE (NEGATIVE); URINE COLOR DKYELLOW; URINE GLUCOSE (UA) NEGATIVE (NEGATIVE); URINE KETONE NEGATIVE (NEGATIVE); URINE LEUK ESTERASE NEGATIVE (NEGATIVE); URINE NITRITE NEGATIVE (NEGATIVE); URINE UROBILINOGEN 4.0 E.U/dl mg/dL (0.2-1.0)
[2017-05-10 17:01] LABS: URINE PROTEIN 1+ (NEGATIVE)
[2017-05-10 17:13] LABS: URINE MUCUS FEW
--- NOTE | 2017-05-10 17:33 | PN ---
S Progress Note Note: Pt. approached bedside for psychiatric consultation. Pt. refused.
[2017-05-10] MEDS: chlordiazePOXIDE HCL 25 MG CAPSULE PO SCH ×2 (18:03→22:54)
[2017-05-10] MEDS: THIAMINE HCL 100 MG TABLET (FP) PO SCH (22:54)
[2017-05-11] MEDS: chlordiazePOXIDE HCL 25 MG CAPSULE PO SCH ×4 (07:31→22:14)
--- NOTE | 2017-05-11 09:54 | EKG ---
Test Reason : Blood Pressure : / mmHG Vent. Rate : 061 BPM Atrial Rate : 061 BPM P-R Int : 130 ms QRS Dur : 082 ms QT Int : 448 ms P-R-T Axes : 054 059 053 degrees QTc Int : 450 ms NORMAL SINUS RHYTHM NORMAL ECG WHEN COMPARED WITH ECG OF 02-FEB-2017 12:57, NO SIGNIFICANT CHANGE WAS FOUND Confirmed by ROMAN GUARDADO MD ([id number]) on 05/11/2017 9:54:02 AM Referred By: Confirmed By:ROMAN GUARDADO MD
[2017-05-11] MEDS ORDERED: METHADONE HCL 10 MG TABLET (FOR DETOX USE ONLY) PO SCH (10:00)
[2017-05-11] MEDS: BACITRACIN 0.9 GM PACKET TP SCH ×2 (10:31→22:13)
[2017-05-11] MEDS: NICOTINE 14 MG/24 HOURS TOPICAL PATCH TD SCH (10:31)
[2017-05-11] MEDS: TOLNAFTATE 1% CREAM 15 GM TUBE TP SCH ×2 (10:31→22:15)
[2017-05-11] MEDS: PRENATAL VITAMINS W/ FOLIC ACID TABLET (FP) PO SCH (10:31)
--- NOTE | 2017-05-11 11:03 | CONSULT ---
[facility] Psychiatric Consult - Data Date of interview: 05/11/17 Admission source: [facility] Identifying data: Readmission to [facility] for this 46 y/o AA male seeking detox treatment on for alcohol,heroin and cocaine dependence.Patient is single (no children claimed in this interview),homeless,unemployed and currently deprived of financial assistance (welfare benefits revoked as per self -report). Substance Abuse History: Confirmed by patient in this interview.See details in current [facility] report : Smoking history: Current every day smoker. Have you smoked in the past 12 months: Yes. Aproximately how many cigarettes per day: 20. Hx Chewing Tobacco Use: No. Initiated information on smoking cessation: Yes. 'Breaking Loose' booklet given: 05/10/17. - Substance & Tx. History. Hx Alcohol Use: Yes (VODKA). Hx Substance Use: Yes (HEROIN/COCAINE). Substance Use Type: Alcohol, Cocaine, Heroin. Hx Substance Use Treatment: Yes (LAST TX AT [facility]). - Substances Abused. Heroin. Route: Injection. Frequency: Daily. Amount used: 10 BAGS. Age of first use: 19. Date of Last Use: . Alcohol. Route: Oral. Frequency: Daily. Amount used: 1 PINT VODKA. Age of first use: 14. Date of Last Use: 05/09/17. Cocaine. Route: Smoking. Frequency: Daily. Amount used: $50. Age of first use: 17. Date of Last Use: 05/09/17 Medical History: Current complaint of soreness in plantar areas.Recent history of spinal surgery (March 2017). Psychiatric History: Patient reports a distant history of psychiatric hospitalizations (known to [facility]).In this interview,he claims no recollection of past diagnoses or medications.Mr Pineda admits to non-adherence to OPD care.Off psychotropic medications for months.Review of previous records indicates the diagnosis of Schizoaffective Disorder and past treatment with geodon + remeron.Mr Pineda declares his intent to abstain from any medication other than drugs necessary for detoxification purposes.Irritable and marginally cooperative historian.Noted report of a remote history of one suicide attempt ( via hanging at age 19). Physical/Sexual Abuse/Trauma History: No information. Additional Comment: Urine Drug Screen Results: SUZANNE-Cocaine, OPI-Opiates, BZO- Benzodiazepines, MTD-Methadone.Noted. Mental Status Exam - Mental Status Exam Alert and Oriented to: Time, Place, Person Cognitive Function: Grossly Intact Patient Appearance: Unkempt, Disheveled Mood: Withdrawn, Anxious Affect: Mood Congruent Patient Behavior: Passive, Guarded, Resitive to Care, Cooperative (marginally cooperative) Speech Pattern: Clear (non spontaneous) Voice Loudness: Normal Thought Process: Goal Oriented Thought Disorder: Not Present Hallucinations: Denies Suicidal Ideation: Denies Homicidal Ideation: Denies Insight/Judgement: Poor Sleep: Poorly, Difficulty falling asleep Appetite: Good Gait/Station: Other (not observed : supine during entire length of interview) Psychiatric Findings - Problem List ([place] 1, 2,3) (1) Opioid dependence with withdrawal Current Visit: Yes Status: Acute (2) Alcohol dependence with uncomplicated withdrawal Current Visit: Yes Status: Acute (3) Cocaine dependence Current Visit: Yes Status: Acute Qualifiers: Substance use status: uncomplicated Qualified Code(s): F14.20 - Cocaine dependence, uncomplicated (4) Nicotine dependence Current Visit: Yes Status: Acute Qualifiers: Substance use status: in withdrawal (5) Substance induced mood disorder Current Visit: Yes Status: Acute (6) Schizoaffective disorder Current Visit: No Status: Chronic Comment: According to old records.Chronically non adherent to OPD care + medications.Lost to follow- up.Patient declines to get back on medications. (7) Insomnia Current Visit: Yes Status: Acute - Initial Treatment Plan Initial Treatment Plan: Past records revisited.Psychoeducation provided in this session.Detoxification in progress.Patient is currently at baseline.Asymptomatic for psychosis or clarisse.Maintenance care with mood stabilizers/atypical agents suggested to patient.Mr Pineda declined.Detoxification in progress.Observation.
[2017-05-11] MEDS ORDERED: ONDANSETRON *ODT* 4 MG TABLET SL PRN (11:22)
--- NOTE | 2017-05-11 11:27 | PN ---
[facility] CIWA - CIWA Score Nausea/Vomitin Muscle Tremors: None Anxiety: 4-Mod. Anxious/Guarded Agitation: 2 Paroxysmal Sweats: 3 Orientation: 0-Oriented Tacttile Disturbances: 2-Mild Itch/Numbness/Burn Auditory Disturbances: 0-None Visual Disturbances: 3-Moderate Sensitivity Headache: 0-None Present CIWA-Ar Total Score: 17 S COWS - Scale Resting Pulse: 0= [place] 80 or Below Sweatin= Chills/Flushing Restless Observation: 1= Difficult to Sit Still Pupil Size: 0= Normal to Room Light Bone or Joint Aches: 2= Severe Diffuse Aches Runny Nose/ Eye Tearin= Nasal Congestion GI Upset > 30mins: 2= Nausea/Diarrhea Tremor Observation of Outstretched Hands: 0= None Yawning Observation: 1= 1-2x During Session Anxiety or Irritability: 2=Irritable/Anxious Goose Flesh Skin: 3=Piloerection COWS Score: 13 [facility] Progress Note (SOAP) Subjective: Nausea, Anxious, Interrupted Sleep, Body Aches, Sweating. Objective: PT. A & O X 3. NO ACUTE DISTRESS. PT. DENIES CHEST PAIN. 05/11/17 11:25 Vital Signs Temperature 97.1 F L 05/11/17 06:08 Pulse Rate 56 L 05/11/17 06:08 Respiratory Rate 18 05/11/17 06:08 Blood Pressure 144/81 05/11/17 06:08 O2 Sat by Pulse Oximetry (%) Laboratory Tests 05/10/17 05/10/17 05/10/17 11:35 11:50 11:50 WBC 3.7 L D RBC 4.00 Hgb 11.7 Hct 36.1 MCV 90.4 MCH 29.3 MCHC 32.5 RDW 17.6 H D Plt Count 231 MPV 9.8 Sodium 146 H Potassium 3.9 Chloride 108 H Carbon Dioxide 29 Anion Gap 9 BUN 11 D Creatinine 1.0 D Creat Clearance w eGFR > 60 Random Glucose 132 H Calcium 8.6 Total Bilirubin 0.2 D AST 35 D ALT 34 D Alkaline Phosphatase 64 D Total Protein 7.2 Albumin 3.3 L Urine Color Urine Appearance Urine pH Ur Specific [place] Urine Protein Urine Glucose (UA) Urine Ketones Urine Blood Urine Nitrite Urine Bilirubin Urine Urobilinogen Ur Leukocyte Esterase Urine WBC (Auto) Urine RBC (Auto) Urine Mucus RPR Titer HIV 1&2 Antibody Screen Negative HIV P24 Antigen Negative 05/10/17 05/10/17 11:50 15:40 WBC RBC Hgb Hct MCV MCH MCHC RDW Plt Count MPV Sodium Potassium Chloride Carbon Dioxide Anion Gap BUN Creatinine Creat Clearance w eGFR Random Glucose Calcium Total Bilirubin AST ALT Alkaline Phosphatase Total Protein Albumin Urine Color Dkyellow Urine Appearance Clear Urine pH 6.0 Ur Specific [place] 1.032 Urine Protein 1+ H Urine Glucose (UA) Negative Urine Ketones Negative Urine Blood Negative Urine Nitrite Negative Urine Bilirubin Negative Urine Urobilinogen 4.0 e.u/dl Ur Leukocyte Esterase Negative Urine WBC (Auto) 1 Urine RBC (Auto) 1 Urine Mucus Few RPR Titer Nonreactive HIV 1&2 Antibody Screen HIV P24 Antigen LABS NOTED. Assessment: 05/11/17 11:25 WITHDRAWAL SYMPTOMS. Plan: CONTINUE DETOX. INCREASE DAILY PO FLUID INTAKE.
[2017-05-11] MEDS: DOCUSATE SODIUM 100 MG CAPSULE (FP) PO SCH ×2 (14:16→22:14)
[2017-05-11] MEDS: NICOTINE POLACRILEX 2 MG GUM BUC PRN ×2 (17:25→22:17)
[2017-05-11] MEDS: THIAMINE HCL 100 MG TABLET (FP) PO SCH (22:14)
[2017-05-12] MEDS: chlordiazePOXIDE HCL 25 MG CAPSULE PO SCH ×2 (06:08→10:57)
[2017-05-12] MEDS: TOLNAFTATE 1% CREAM 15 GM TUBE TP SCH ×2 (10:33→22:04)
[2017-05-12] MEDS: BACITRACIN 0.9 GM PACKET TP SCH ×2 (10:57→22:03)
[2017-05-12] MEDS: PRENATAL VITAMINS W/ FOLIC ACID TABLET (FP) PO SCH (10:58)
[2017-05-12] MEDS: DOCUSATE SODIUM 100 MG CAPSULE (FP) PO SCH ×2 (10:58→22:03)
[2017-05-12] MEDS: METHADONE HCL 5 MG TABLET (FOR DETOX USE ONLY) PO SCH (10:58)
[2017-05-12] MEDS: NICOTINE 14 MG/24 HOURS TOPICAL PATCH TD SCH (10:59)
[2017-05-12] MEDS ORDERED: diphenhydrAMINE HCL 25 MG CAPSULE (FP) PO PRN (11:01)
[2017-05-12] MEDS: MINERAL OIL/PETROLAT/WATER TOPICAL CREAM 454 GM JAR TP SCH ×2 (13:32→22:04)
--- NOTE | 2017-05-12 15:13 | PN ---
[facility] CIWA - CIWA Score Nausea/Vomitin Muscle Tremors: 3 Anxiety: 5 Agitation: 3 Paroxysmal Sweats: No Perspiration Orientation: 2-Disoriented Date<2 days Tacttile Disturbances: 2-Mild Itch/Numbness/Burn Auditory Disturbances: 0-None Visual Disturbances: 0-None Headache: 0-None Present CIWA-Ar Total Score: 18 [facility] COWS - Scale Resting Pulse: 0= [place] 80 or Below Sweatin= No chills or Flushing Restless Observation: 1= Difficult to Sit Still Pupil Size: 0= Normal to Room Light Bone or Joint Aches: 2= Severe Diffuse Aches Runny Nose/ Eye Tearin= None GI Upset > 30mins: 2= Nausea/Diarrhea Tremor Observation of Outstretched Hands: 2= Slight Tremor Visible Yawning Observation: 1= 1-2x During Session Anxiety or Irritability: 4=Extreme Anxiety Goose Flesh Skin: 3=Piloerection COWS Score: 15 [facility] Progress Note (SOAP) Subjective: Nausea, Stomach cramping, Interrupted Sleep, Anxious, Body Aches, Tremors, Constipation. Objective: PT. A & O X 2 (UNCERTAIN ABOUT CURRENT DAY / DATE). PT. OBSERVED AMBULATING ON UNIT. NO ACUTE DISTRESS. 05/12/17 15:11 Vital Signs Temperature 96 F L 05/12/17 09:53 Pulse Rate 62 05/12/17 09:53 Respiratory Rate 18 05/12/17 09:53 Blood Pressure 133/85 05/12/17 09:53 O2 Sat by Pulse Oximetry (%) Laboratory Tests 05/10/17 05/10/17 05/10/17 11:35 11:50 11:50 WBC 3.7 L D RBC 4.00 Hgb 11.7 Hct 36.1 MCV 90.4 MCH 29.3 MCHC 32.5 RDW 17.6 H D Plt Count 231 MPV 9.8 Sodium 146 H Potassium 3.9 Chloride 108 H Carbon Dioxide 29 Anion Gap 9 BUN 11 D Creatinine 1.0 D Creat Clearance w eGFR > 60 Random Glucose 132 H Calcium 8.6 Total Bilirubin 0.2 D AST 35 D ALT 34 D Alkaline Phosphatase 64 D Total Protein 7.2 Albumin 3.3 L Urine Color Urine Appearance Urine pH Ur Specific [place] Urine Protein Urine Glucose (UA) Urine Ketones Urine Blood Urine Nitrite Urine Bilirubin Urine Urobilinogen Ur Leukocyte Esterase Urine WBC (Auto) Urine RBC (Auto) Urine Mucus RPR Titer HIV 1&2 Antibody Screen Negative HIV P24 Antigen Negative 05/10/17 05/10/17 11:50 15:40 WBC RBC Hgb Hct MCV MCH MCHC RDW Plt Count MPV Sodium Potassium Chloride Carbon Dioxide Anion Gap BUN Creatinine Creat Clearance w eGFR Random Glucose Calcium Total Bilirubin AST ALT Alkaline Phosphatase Total Protein Albumin Urine Color Dkyellow Urine Appearance Clear Urine pH 6.0 Ur Specific [place] 1.032 Urine Protein 1+ H Urine Glucose (UA) Negative Urine Ketones Negative Urine Blood Negative Urine Nitrite Negative Urine Bilirubin Negative Urine Urobilinogen 4.0 e.u/dl Ur Leukocyte Esterase Negative Urine WBC (Auto) 1 Urine RBC (Auto) 1 Urine Mucus Few RPR Titer Nonreactive HIV 1&2 Antibody Screen HIV P24 Antigen LABS NOTED. Assessment: 05/12/17 15:11 WITHDRAWAL SYMPTOMS. Plan: CONTINUE DETOX. INCREASE DAILY PO FLUID INTAKE. COLACE, 100 MG PO BID FOR CONSTIPATION. EUCERIN FOR DRY SKIN ON BILATERAL HANDS AND FEET.
[2017-05-12] MEDS: NICOTINE POLACRILEX 2 MG GUM BUC PRN ×3 (15:39→22:06)
[2017-05-12] MEDS: chlordiazePOXIDE 5 MG CAPSULE PO SCH ×2 (17:15→22:03)
[2017-05-12] MEDS: THIAMINE HCL 100 MG TABLET (FP) PO SCH (22:03)
[2017-05-13] MEDS: chlordiazePOXIDE 5 MG CAPSULE PO SCH ×2 (05:58→10:03)
[2017-05-13] MEDS: MINERAL OIL/PETROLAT/WATER TOPICAL CREAM 454 GM JAR TP SCH ×2 (10:02→22:10)
[2017-05-13] MEDS: DOCUSATE SODIUM 100 MG CAPSULE (FP) PO SCH ×2 (10:03→22:11)
[2017-05-13] MEDS: PRENATAL VITAMINS W/ FOLIC ACID TABLET (FP) PO SCH (10:03)
[2017-05-13] MEDS: NICOTINE POLACRILEX 2 MG GUM BUC PRN ×4 (10:03→22:13)
[2017-05-13] MEDS: BACITRACIN 0.9 GM PACKET TP SCH ×2 (10:03→22:09)
[2017-05-13] MEDS: NICOTINE 14 MG/24 HOURS TOPICAL PATCH TD SCH (10:04)
[2017-05-13] MEDS: METHADONE HCL 5 MG TABLET (FOR DETOX USE ONLY) PO SCH (10:04)
[2017-05-13] MEDS: TOLNAFTATE 1% CREAM 15 GM TUBE TP SCH ×2 (10:06→22:11)
--- NOTE | 2017-05-13 12:00 | PN ---
[facility] Progress Note (SOAP) Subjective: Sweating, nausea, interrupted sleep Objective: 05/13/17 11:56 Last Vital Signs Temp Pulse Resp BP Pulse Ox 97.6 F 86 16 128/77 05/13/17 09:20 05/13/17 09:20 05/13/17 09:20 05/13/17 09:20 Laboratory Tests 05/10/17 05/10/17 05/10/17 11:35 11:50 11:50 WBC 3.7 L D RBC 4.00 Hgb 11.7 Hct 36.1 MCV 90.4 MCH 29.3 MCHC 32.5 RDW 17.6 H D Plt Count 231 MPV 9.8 Sodium 146 H Potassium 3.9 Chloride 108 H Carbon Dioxide 29 Anion Gap 9 BUN 11 D Creatinine 1.0 D Creat Clearance w eGFR > 60 Random Glucose 132 H Calcium 8.6 Total Bilirubin 0.2 D AST 35 D ALT 34 D Alkaline Phosphatase 64 D Total Protein 7.2 Albumin 3.3 L Urine Color Urine Appearance Urine pH Ur Specific [place] Urine Protein Urine Glucose (UA) Urine Ketones Urine Blood Urine Nitrite Urine Bilirubin Urine Urobilinogen Ur Leukocyte Esterase Urine WBC (Auto) Urine RBC (Auto) Urine Mucus RPR Titer HIV 1&2 Antibody Screen Negative HIV P24 Antigen Negative 05/10/17 05/10/17 11:50 15:40 WBC RBC Hgb Hct MCV MCH MCHC RDW Plt Count MPV Sodium Potassium Chloride Carbon Dioxide Anion Gap BUN Creatinine Creat Clearance w eGFR Random Glucose Calcium Total Bilirubin AST ALT Alkaline Phosphatase Total Protein Albumin Urine Color Dkyellow Urine Appearance Clear Urine pH 6.0 Ur Specific [place] 1.032 Urine Protein 1+ H Urine Glucose (UA) Negative Urine Ketones Negative Urine Blood Negative Urine Nitrite Negative Urine Bilirubin Negative Urine Urobilinogen 4.0 e.u/dl Ur Leukocyte Esterase Negative Urine WBC (Auto) 1 Urine RBC (Auto) 1 Urine Mucus Few RPR Titer Nonreactive HIV 1&2 Antibody Screen HIV P24 Antigen Labs noted: serum glucose 132; UA shows 1+ protein Assessment: 05/13/17 12:00 Withdrawal symptoms Noted with hyperglycemia and proteinuria Plan: Continue detox Hyperglycemia: repeat fasting glucose, check A1c Proteinuria: encouraged to drink lots of water, repeat UA
[2017-05-13] MEDS: chlordiazePOXIDE HCL 10 MG CAPSULE PO SCH ×2 (17:56→22:11)
[2017-05-13] MEDS: THIAMINE HCL 100 MG TABLET (FP) PO SCH (22:11)
[2017-05-14] MEDS: chlordiazePOXIDE HCL 10 MG CAPSULE PO SCH ×2 (06:15→10:12)
--- NOTE | 2017-05-14 09:39 | PN ---
S Progress Note (SOAP) Subjective: ANXIETY,IRRITABILITY,BACK PAIN. STATES NOW HE USES CANE AND NOT SURE IF IT WAS STOLEN BEFORE COMING TO THE UNIT. Objective: 05/14/17 09:37 Vital Signs Temperature 96.0 F L 05/14/17 09:04 Pulse Rate 56 L 05/14/17 09:04 Respiratory Rate 18 05/14/17 09:04 Blood Pressure 120/73 05/14/17 09:04 O2 Sat by Pulse Oximetry (%) Laboratory Last Values WBC 3.7 K/mm3 (4.0-10.0) L D 05/10/17 11:50 RBC 4.00 M/mm3 (4.00-5.60) 05/10/17 11:50 Hgb 11.7 GM/dL (11.7-16.9) 05/10/17 11:50 Hct 36.1 % (35.4-49) 05/10/17 11:50 MCV 90.4 fl (80-96) 05/10/17 11:50 MCH 29.3 pg (25.7-33.7) 05/10/17 11:50 MCHC 32.5 g/dl (32.0-35.9) 05/10/17 11:50 RDW 17.6 % (11.9-15.9) H D 05/10/17 11:50 Plt Count 231 K/MM3 (134-434) 05/10/17 11:50 MPV 9.8 fl (7.5-11.1) 05/10/17 11:50 Sodium 146 mmol/L (136-145) H 05/10/17 11:50 Potassium 3.9 mmol/L (3.5-5.1) 05/10/17 11:50 Chloride 108 mmol/L (98-107) H 05/10/17 11:50 Carbon Dioxide 29 mmol/L (21-32) 05/10/17 11:50 Anion Gap 9 (8-16) 05/10/17 11:50 BUN 11 mg/dL (7-18) D 05/10/17 11:50 Creatinine 1.0 mg/dL (0.7-1.3) D 05/10/17 11:50 Creat Clearance w eGFR > 60 (>60) 05/10/17 11:50 Random Glucose 132 mg/dL (74-106) H 05/10/17 11:50 Calcium 8.6 mg/dL (8.5-10.1) 05/10/17 11:50 Total Bilirubin 0.2 mg/dL (0.2-1.0) D 05/10/17 11:50 AST 35 U/L (15-37) D 05/10/17 11:50 ALT 34 U/L (12-78) D 05/10/17 11:50 Alkaline Phosphatase 64 U/L (45-117) D 05/10/17 11:50 Total Protein 7.2 g/dl (6.4-8.2) 05/10/17 11:50 Albumin 3.3 g/dl (3.4-5.0) L 05/10/17 11:50 Urine Color Dkyellow 05/10/17 15:40 Urine Appearance Clear 05/10/17 15:40 Urine pH 6.0 (5.0-8.0) 05/10/17 15:40 Ur Specific [place] 1.032 (1.001-1.035) 05/10/17 15:40 Urine Protein 1+ (NEGATIVE) H 05/10/17 15:40 Urine Glucose (UA) Negative (NEGATIVE) 05/10/17 15:40 Urine Ketones Negative (NEGATIVE) 05/10/17 15:40 Urine Blood Negative (NEGATIVE) 05/10/17 15:40 Urine Nitrite Negative (NEGATIVE) 05/10/17 15:40 Urine Bilirubin Negative (NEGATIVE) 05/10/17 15:40 Urine Urobilinogen 4.0 e.u/dl mg/dL (0.2-1.0) 05/10/17 15:40 Ur Leukocyte Esterase Negative (NEGATIVE) 05/10/17 15:40 Urine WBC (Auto) 1 /hpf (3-5) 05/10/17 15:40 Urine RBC (Auto) 1 /hpf (0-3) 05/10/17 15:40 Urine Mucus Few 05/10/17 15:40 RPR Titer Nonreactive (NONREACTIVE) 05/10/17 11:50 HIV 1&2 Antibody Screen Negative 05/10/17 11:35 HIV P24 Antigen Negative 05/10/17 11:35 Assessment: 05/14/17 09:38 WITHDRAWAL SX Plan: CONTINUE DETOX OBTAIN CANE FROM STORE ROOM FOR PATIENT.
[2017-05-14] MEDS ORDERED: METHADONE HCL 10 MG TABLET (FOR DETOX USE ONLY) PO SCH (10:00)
[2017-05-14] MEDS: TOLNAFTATE 1% CREAM 15 GM TUBE TP SCH (10:08)
[2017-05-14] MEDS: BACITRACIN 0.9 GM PACKET TP SCH (10:08)
[2017-05-14] MEDS: MINERAL OIL/PETROLAT/WATER TOPICAL CREAM 454 GM JAR TP SCH (10:08)
[2017-05-14] MEDS: PRENATAL VITAMINS W/ FOLIC ACID TABLET (FP) PO SCH (10:11)
[2017-05-14] MEDS: NICOTINE 14 MG/24 HOURS TOPICAL PATCH TD SCH (10:11)
[2017-05-14] MEDS: DOCUSATE SODIUM 100 MG CAPSULE (FP) PO SCH (10:11)
[2017-05-14] MEDS: NICOTINE POLACRILEX 2 MG GUM BUC PRN (15:02)
[2017-05-14 17:11] VITALS: BP 117/57; PULSE 74; TEMP 98.1
--- NOTE | 2017-05-14 21:17 | DS ---
[facility] Detox Discharge Summary Admission Date: 05/10/17 Discharge Date: 05/14/17 - History Present History: Alcohol Dependence, Cocaine Dependence, Opioid Dependence - Physical Exam Results Vital Signs: Vital Signs Temperature 98.1 F 05/14/17 17:11 Pulse Rate 74 05/14/17 17:11 Respiratory Rate 18 05/14/17 17:11 Blood Pressure 117/57 05/14/17 17:11 O2 Sat by Pulse Oximetry (%) - Medication Discharge Medications: Ambulatory Orders NK [No Known Home Medication] 05/10/17 - Diagnosis (1) Alcohol dependence with uncomplicated withdrawal Current Visit: Yes Status: Acute (2) Opioid dependence with withdrawal Current Visit: Yes Status: Acute (3) Substance induced mood disorder Current Visit: Yes Status: Acute (4) Cocaine dependence Current Visit: Yes Status: Chronic Qualifiers: Substance use status: uncomplicated Qualified Code(s): F14.20 - Cocaine dependence, uncomplicated (5) Nicotine dependence Current Visit: Yes Status: Chronic Qualifiers: Nicotine product type: cigarettes Substance use status: in withdrawal Qualified Code(s): F17.213 - Nicotine dependence, cigarettes, with withdrawal (6) Cannabis dependence Current Visit: No Status: Acute (7) Schizoaffective disorder Current Visit: No Status: Chronic - AMA Did Patient Leave Against Medical Advice: Yes (patient was counselled exentisively to complete treatment, patietn decline)
[2017-05-15] MEDS ORDERED: METHADONE HCL 5 MG TABLET (FOR DETOX USE ONLY) PO SCH (06:00)
== END 2017-05-14 21:07 | disposition left against medical advice (07) | DRG 770 ==
LOC: YASAS 08:29 → Y3N 12:08
PROVIDERS: ADMIT Internal Medicine; ATTEND Internal Medicine
PROC: HZ2ZZZZ Detoxification Services for Substance Abuse Treatment (ICD-10-PCS; principal; 2017-05-10)
DX: F11.23 Opioid dependence with withdrawal (principal); F10.230 Alcohol dependence with withdrawal, uncomplicated; F14.20 Cocaine dependence, uncomplicated; F12.20 Cannabis dependence, uncomplicated; F17.213 Nicotine dependence, cigarettes, with withdrawal; F19.24 Other psychoactive substance dependence with psychoactive substance-induced mood disorder; F25.9 Schizoaffective disorder, unspecified; R73.9 Hyperglycemia, unspecified; R80.9 Proteinuria, unspecified; B35.3 Tinea pedis; G47.00 Insomnia, unspecified; M54.5 Low back pain; G89.29 Other chronic pain; M79.89 Other specified soft tissue disorders; Z91.013 Allergy to seafood; Z87.898 Personal history of other specified conditions; Z91.5 Personal history of self-harm; Z59.0 Homelessness
CPT/HCPCS: 36415; 80053; 81003; 81015; 82947; 83036; 85027; 86593; 87389; 93005; 93010

== ENCOUNTER 2017-09-28 16:56 | Inpatient (IN) | payer OTHER ==
--- NOTE | 2017-09-28 21:32 | HP ---
COWS - Scale Resting Pulse: 0= ID 80 or Below Sweatin=Flushed/Facial Moisture Restless Observation: 1= Difficult to Sit Still Pupil Size: 1= Pupils >than Normal Bone or Joint Aches: 4=Acute Joint/Muscle Pain Runny Nose/ Eye Tearin= Nasal Congestion GI Upset > 30mins: 3= Vomiting/Diarrhea (diarrhea x 3) Tremor Observation: 2= Slight Tremor Visible Yawning Observation: 1= 1-2x During Session Anxiety or Irritability: 4=Extreme Anxiety Goose Flesh Skin: 0=Smooth Skin COWS Score: 19 CIWA Score - CIWA Score Nausea/Vomitin Muscle Tremors: 3 Anxiety: 3 Agitation: 3 Paroxysmal Sweats: 1-Minimal Palms Moist Orientation: 1-Uncertain about Date Tacttile Disturbances: 1-Very Mild Itch/Numbness Auditory Disturbances: 0-None Visual Disturbances: 0-None Headache: 3-Moderate CIWA-Ar Total Score: 18 Admission ROS S - HPI Chief Complaint: Heroin and alcohol withdrawal symptoms Allergies/Adverse Reactions: Allergies Allergy/AdvReac Type Severity Reaction Status Date / Time shellfish derived Allergy Severe Hives Verified 09/28/17 20:53 No Known Drug Allergies Allergy Verified 09/28/17 20:53 pasta Allergy Intermediate Hives Uncoded 09/28/17 20:53 NKDA Allergy Uncoded 09/28/17 20:53 History of Present Illness: 46 years old male with a long history of alcohol and heroine dependence is seeking admission to detox. Patient has been to previous detox and reports 2 years of sobriety. He has medical history of low back pain and depression. He reports suicide attempt as a teenager and denies suicidal ideation at this time. Exam Limitations: No Limitations - Ebola screening Have you traveled outside of the country in the last 21 days: No (N) Have you had contact with anyone from an Ebola affected area: No Have you been sick,other than usual withdrawal symptoms: No Do you have a fever: No - Review of Systems Constitutional: Chills, Loss of Appetite, Night Sweats EENT: reports: Blurred Vision Respiratory: reports: No Symptoms reported Cardiac: reports: Irregular Heart Rate GI: reports: Diarrhea, Poor Appetite, Poor Fluid Intake, Abdominal cramping : reports: No Symptoms Reported Musculoskeletal: reports: Back Pain, Joint Pain, Muscle Pain, Muscle Weakness, Neck Pain Integumentary: reports: Dryness, Flushing Neuro: reports: Headache, Paresthesia, Seizure, Tingling, Tremors, Dizziness Endocrine: reports: No Symptoms Reported Hematology: reports: No Symptoms Reported Psychiatric: reports: Anxious, Depressed Other Systems: Reviewed and Negative Patient History - Patient Medical History Hx Anemia: No Hx Asthma: No Hx Chronic Obstructive Pulmonary Disease (COPD): No Hx Cancer: No Hx Cardiac Disorders: No Hx Congestive Heart Failure: No Hx Hypertension: No Hx Hypercholesterolemia: No Hx Pacemaker: No HX Cerebrovascular Accident: No Hx Seizures: No Hx Dementia: No Hx Diabetes: No Hx Gastrointestinal Disorders: No Hx Liver Disease: No Hx Genitourinary Disorders: No Hx Sexually Transmitted Disorders: No Hx Renal Disease (ESRD): No Hx Thyroid Disease: No Hx Human Immunodeficiency Virus (HIV): No ( NEGATIVE HX) Hx Hepatitis C: No Hx Depression: Yes (Remerol and Benadryl) Hx Suicide Attempt: Yes (Tried to hang himself as a teen;DENIES CURRENT S/H/I) Hx Bipolar Disorder: No Hx Schizophrenia: No - Patient Surgical History Past Surgical History: Yes Hx Neurologic Surgery: Yes (Spinal sx for an infection in [facility] 04/01 ) Hx Cataract Extraction: No Hx Cardiac Surgery: No Hx Lung Surgery: No Hx Breast Surgery: No Hx Abdominal Surgery: No Hx Appendectomy: No Hx Cholecystectomy: No Hx Genitourinary Surgery: No Hx Orthopedic Surgery: No Anesthesia Reaction: No - PPD History Previous Implant?: Yes Documented Results: Negative w/proof Date: 02/04/17 Results: 0 mm PPD to be Administered?: No - Reproductive History Patient is a Female of Child Bearing Age (11 -55 yrs old): No (Male) - Smoking Cessation Smoking history: Current every day smoker Have you smoked in the past 12 months: Yes Aproximately how many cigarettes per day: 20 Hx Chewing Tobacco Use: No Initiated information on smoking cessation: Yes 'Breaking Loose' booklet given: 09/28/17 - Substance & Tx. History Hx Alcohol Use: Yes Hx Substance Use: Yes Substance Use Type: Alcohol, Cocaine, Heroin, Marijuana, Opiates Hx Substance Use Treatment: Yes ([facility]) - Substances Abused Alcohol Route: Oral Frequency: Daily Amount used: LIQUOR- 2 PINTS BEER- 2 SIX PACK Age of first use: 19 Date of Last Use: 09/28/17 Heroin Route: Injection Frequency: Daily Amount used: 10 BAGS Age of first use: 19 Date of Last Use: 09/27/17 Family Disease History - Family Disease History Family Disease History: Diabetes: Sister (2 SISTERS), Other: Father (ALCOHOLISM- ) Admission Physical Exam [facility] - Vital Signs Vital Signs: Vital Signs - 24 hr 09/28/17 20:58 Temperature 97.3 F L Pulse Rate 60 Respiratory 20 Rate Blood Pressure 141/96 - Physical General Appearance: Yes: Moderate Distress, Tremorous, Irritable, Sweating, Anxious HEENTM: Yes: EOMI, Normal ENT Inspection, Normocephalic, Normal Voice, HUGO Respiratory: Yes: Lungs Clear, Normal Breath Sounds, No Respiratory Distress Neck: Yes: Supple Breast: Yes: Breast Exam Deferred Cardiology: Yes: Regular Rhythm, Regular Rate, S1, S2 Abdominal: Yes: Normal Bowel Sounds, Soft Genitourinary: Yes: Within Normal Limits Back: Yes: Normal Inspection Musculoskeletal: Yes: Back pain, Muscle Pain, Muscle weakness Extremities: Yes: Tremors Neurological: Yes: Alert, Normal Mood/Affect Integumentary: Yes: Dry Lymphatic: Yes: Within Normal Limits - Diagnostic (1) Alcohol dependence with uncomplicated withdrawal Current Visit: Yes Status: Chronic (2) Cannabis dependence Current Visit: Yes Status: Chronic (3) Opioid dependence with withdrawal Current Visit: Yes Status: Chronic (4) Cocaine dependence Current Visit: Yes Status: Chronic Qualifiers: Substance use status: uncomplicated Qualified Code(s): F14.20 - Cocaine dependence, uncomplicated (5) Low back pain Current Visit: Yes Status: Chronic Qualifiers: Chronicity: chronic Back pain laterality: unspecified Sciatica presence: unspecified whether sciatica present Qualified Code(s): M54.5 - Low back pain ; G89.29 - Other chronic pain (6) Nicotine dependence Current Visit: Yes Status: Acute Qualifiers: Nicotine product type: cigarettes Substance use status: in withdrawal Qualified Code(s): F17.213 - Nicotine dependence, cigarettes, with withdrawal Cleared for Admission [facility] - Detox or Rehab [facility] Level of Care: Medically Managed Detox Regimen/Protocol: Methadone/Librium [facility] Breath Alcohol Content Breath Alcohol Content: 0 Urine Drug Screen - Results Drug Screen Negative: No Urine Drug Screen Results: SUZANNE-Cocaine, OPI-Opiates, BZO-Benzodiazepines, MTD- Methadone
[2017-09-28 21:42] VITALS: BMI 27.8
[2017-09-28] MEDS ORDERED: MELATONIN 5 MG TABLETS PO PRN (22:00)
[2017-09-28] MEDS ORDERED: MAG HYDROX/AL HYDROX/SIMETH 30 ML UNIT-DOSE CUP PO PRN (22:27)
[2017-09-28] MEDS ORDERED: IBUPROFEN 400 MG TABLET (FP) PO PRN (22:27)
[2017-09-28] MEDS ORDERED: ACETAMINOPHEN 325 MG TABLET (FP) PO PRN (22:27)
[2017-09-28] MEDS ORDERED: guaiFENesin/D-METHORPHAN HB 10 ML UNIT-DOSE CUPS PO PRN (22:27)
[2017-09-28] MEDS ORDERED: METHADONE HCL 10 MG TABLET (FOR DETOX USE ONLY) PO ONE ×2 (22:27→23:00)
[2017-09-28] MEDS ORDERED: chlordiazePOXIDE HCL 25 MG CAPSULE PO PRN (22:27)
[2017-09-28] MEDS ORDERED: MENTHOL/PHENOL 1 EACH UD MM PRN (22:27)
[2017-09-28] MEDS ORDERED: P-EPHED 60MG/TRIPROLIDI 2.5MG TABLET PO PRN (22:27)
[2017-09-28] MEDS ORDERED: MAGNESIUM HYDROX 2400MG/30ML ORAL SUSPENSION 30 ML CUP PO PRN (22:27)
[2017-09-28] MEDS ORDERED: MAGNESIUM CITRATE 300 ML BOTTLE PO PRN (22:27)
[2017-09-28] MEDS ORDERED: LOPERAMIDE HCL 2 MG CAPSULE PO PRN (22:27)
[2017-09-28] MEDS: chlordiazePOXIDE HCL 25 MG CAPSULE PO SCH (22:43)
[2017-09-29] MEDS: chlordiazePOXIDE HCL 25 MG CAPSULE PO SCH ×4 (05:37→22:57)
[2017-09-29 09:34] LABS: URINE APPEARANCE CLEAR; URINE BILIRUBIN NEGATIVE (<2.0 mg/dL); URINE COLOR YELLOW; URINE GLUCOSE (UA) NEGATIVE (NEGATIVE); URINE KETONE NEGATIVE (NEGATIVE); URINE LEUK ESTERASE NEGATIVE (NEGATIVE); URINE NITRITE NEGATIVE (NEGATIVE); URINE PROTEIN NEGATIVE (NEGATIVE)
[2017-09-29 09:59] LABS: HEMATOCRIT 40.2 % (35.4-49); HEMOGLOBIN 13.3 GM/dL (11.7-16.9); MCH 31.3 pg (25.7-33.7); MCHC 33.1 g/dl (32.0-35.9); MEAN CELL VOLUME 94.6 fl (80-96); MEAN PLT VOLUME 9.5 fl (7.5-11.1); PLATELET COUNT 228 K/MM3 (134-434); RBC 4.25 M/mm3 (4.00-5.60); RDW 14.5 % (11.9-15.9); WHITE BLOOD COUNT 4.9 K/mm3 (4.0-10.0)
[2017-09-29] MEDS ORDERED: METHADONE HCL 10 MG TABLET (FOR DETOX USE ONLY) PO SCH (10:00)
[2017-09-29] MEDS: PRENATAL VITAMINS W/ FOLIC ACID TABLET (FP) PO SCH (10:19)
[2017-09-29 10:41] LABS: CHLORIDE 105 mmol/L (98-107); POTASSIUM 4.3 mmol/L (3.5-5.1); SODIUM 140 mmol/L (136-145)
[2017-09-29 11:01] LABS: ALBUMIN 3.6 g/dl (3.4-5.0); ALK PHOS 59 U/L (45-117); ANION GAP 7 (8-16); BILIRUBIN,TOTAL 0.5 mg/dL (0.2-1.0); BLOOD UREA NITROGEN 18 mg/dL (7-18); CALCIUM 8.9 mg/dL (8.5-10.1); CO2 28 mmol/L (21-32); CREATININE 0.9 mg/dL (0.7-1.3); GLUCOSE,RANDOM 86 mg/dL (74-106); SGOT/AST 52 U/L (15-37); SGPT/ALT 63 U/L (12-78); TOT PROT 7.6 g/dl (6.4-8.2)
--- NOTE | 2017-09-29 15:53 | PN ---
S CIWA - CIWA Score Nausea/Vomitin Muscle Tremors: 3 Anxiety: 4-Mod. Anxious/Guarded Agitation: 4-Moderately Restless Paroxysmal Sweats: 3 Orientation: 0-Oriented Tacttile Disturbances: 0-None Auditory Disturbances: 0-None Visual Disturbances: 0-None Headache: 0-None Present CIWA-Ar Total Score: 17 BHS COWS - Scale Resting Pulse: 0= [place] 80 or Below Sweatin=Flushed/Facial Moisture Restless Observation: 3= Extraneous Movement Pupil Size: 0= Normal to Room Light Bone or Joint Aches: 1= Mild Discomfort Runny Nose/ Eye Tearin= Nasal Congestion GI Upset > 30mins: 2= Nausea/Diarrhea Tremor Observation of Outstretched Hands: 2= Slight Tremor Visible Yawning Observation: 1= 1-2x During Session Anxiety or Irritability: 2=Irritable/Anxious Goose Flesh Skin: 0=Smooth Skin COWS Score: 14 S Progress Note (SOAP) Subjective: sleep disturbance diarrhea shakes abd cramp Objective: 09/29/17 15:52 A & O x 3 Vital Signs Temperature 97.7 F 09/29/17 14:28 Pulse Rate 50 L 09/29/17 14:28 Respiratory Rate 18 09/29/17 14:28 Blood Pressure 128/76 09/29/17 14:28 O2 Sat by Pulse Oximetry (%) Laboratory Last Values WBC 4.9 K/mm3 (4.0-10.0) D 09/29/17 08:00 RBC 4.25 M/mm3 (4.00-5.60) 09/29/17 08:00 Hgb 13.3 GM/dL (11.7-16.9) D 09/29/17 08:00 Hct 40.2 % (35.4-49) 09/29/17 08:00 MCV 94.6 fl (80-96) 09/29/17 08:00 MCH 31.3 pg (25.7-33.7) 09/29/17 08:00 MCHC 33.1 g/dl (32.0-35.9) 09/29/17 08:00 RDW 14.5 % (11.9-15.9) D 09/29/17 08:00 Plt Count 228 K/MM3 (134-434) 09/29/17 08:00 MPV 9.5 fl (7.5-11.1) 09/29/17 08:00 Sodium 140 mmol/L (136-145) 09/29/17 08:00 Potassium 4.3 mmol/L (3.5-5.1) 09/29/17 08:00 Chloride 105 mmol/L (98-107) 09/29/17 08:00 Carbon Dioxide 28 mmol/L (21-32) 09/29/17 08:00 Anion Gap 7 (8-16) L 09/29/17 08:00 BUN 18 mg/dL (7-18) D 09/29/17 08:00 Creatinine 0.9 mg/dL (0.7-1.3) 09/29/17 08:00 Creat Clearance w eGFR > 60 (>60) 09/29/17 08:00 Random Glucose 86 mg/dL (74-106) D 09/29/17 08:00 Calcium 8.9 mg/dL (8.5-10.1) 09/29/17 08:00 Total Bilirubin 0.5 mg/dL (0.2-1.0) D 09/29/17 08:00 AST 52 U/L (15-37) H D 09/29/17 08:00 ALT 63 U/L (12-78) D 09/29/17 08:00 Alkaline Phosphatase 59 U/L (45-117) 09/29/17 08:00 Total Protein 7.6 g/dl (6.4-8.2) 09/29/17 08:00 Albumin 3.6 g/dl (3.4-5.0) 09/29/17 08:00 Urine Color Yellow 09/28/17 21:00 Urine Appearance Clear 09/28/17 21:00 Urine pH 5.0 (5.0-8.0) 09/28/17 21:00 Ur Specific [place] 1.023 (1.001-1.035) 09/28/17 21:00 Urine Protein Negative (NEGATIVE) 09/28/17 21:00 Urine Glucose (UA) Negative (NEGATIVE) 09/28/17 21:00 Urine Ketones Negative (NEGATIVE) 09/28/17 21:00 Urine Blood Negative (NEGATIVE) 09/28/17 21:00 Urine Nitrite Negative (NEGATIVE) 09/28/17 21:00 Urine Bilirubin Negative (<2.0 mg/dL) 09/28/17 21:00 Urine Urobilinogen 2.0 mg/dL (0.2-1.0) 09/28/17 21:00 Ur Leukocyte Esterase Negative (NEGATIVE) 09/28/17 21:00 HIV 1&2 Antibody Screen Negative 09/29/17 08:00 HIV P24 Antigen Negative 09/29/17 08:00 labs noted Assessment: 09/29/17 15:53 withdrawal sx Plan: continue detox increase hydration
[2017-09-29] MEDS: NICOTINE 14 MG/24 HOURS TOPICAL PATCH TD SCH (16:09)
[2017-09-29] MEDS: NICOTINE POLACRILEX 2 MG GUM BUC PRN ×2 (16:09→23:40)
--- NOTE | 2017-09-29 17:49 | EKG ---
Test Reason : Blood Pressure : / mmHG Vent. Rate : 066 BPM Atrial Rate : 066 BPM P-R Int : 154 ms QRS Dur : 080 ms QT Int : 428 ms P-R-T Axes : 049 044 038 degrees QTc Int : 448 ms NORMAL SINUS RHYTHM NORMAL ECG WHEN COMPARED WITH ECG OF 10-MAY-2017 13:18, NO SIGNIFICANT CHANGE WAS FOUND Confirmed by ANGELA VASQUEZ MD ([id number]) on 09/29/2017 5:49:26 PM Referred By: Confirmed By:ANGELA VASQUEZ MD
[2017-09-29] MEDS ORDERED: THIAMINE HCL 100 MG TABLET (FP) PO SCH (22:00)
[2017-09-30] MEDS: chlordiazePOXIDE HCL 25 MG CAPSULE PO SCH ×3 (05:36→17:23)
[2017-09-30] MEDS ORDERED: METHADONE HCL 5 MG TABLET (FOR DETOX USE ONLY) PO SCH (10:00)
[2017-09-30] MEDS: PRENATAL VITAMINS W/ FOLIC ACID TABLET (FP) PO SCH (11:05)
[2017-09-30] MEDS: NICOTINE POLACRILEX 2 MG GUM BUC PRN ×2 (11:06→18:24)
[2017-09-30] MEDS: NICOTINE 14 MG/24 HOURS TOPICAL PATCH TD SCH (11:09)
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
[2017-09-30] MEDS ORDERED: MIRTAZAPINE 15 MG TABLET (FP) PO SCH ×2 (13:00)
--- NOTE | 2017-09-30 13:13 | PN ---
S CIWA - CIWA Score Nausea/Vomitin-No Nausea/No Vomiting Muscle Tremors: 4-Moderate,w/Arms Extend Anxiety: 4-Mod. Anxious/Guarded Agitation: 3 Paroxysmal Sweats: 1-Minimal Palms Moist Orientation: 0-Oriented Tacttile Disturbances: 1-Very Mild Itch/Numbness Auditory Disturbances: 0-None Visual Disturbances: 0-None Headache: 0-None Present CIWA-Ar Total Score: 13 BHS COWS - Scale Resting Pulse: 0= [place] 80 or Below Sweatin= Chills/Flushing Restless Observation: 1= Difficult to Sit Still Pupil Size: 0= Normal to Room Light Bone or Joint Aches: 2= Severe Diffuse Aches Runny Nose/ Eye Tearin= Nasal Congestion GI Upset > 30mins: 2= Nausea/Diarrhea Tremor Observation of Outstretched Hands: 2= Slight Tremor Visible Yawning Observation: 2= >3x During Session Anxiety or Irritability: 2=Irritable/Anxious Goose Flesh Skin: 0=Smooth Skin COWS Score: 13 S Progress Note (SOAP) Subjective: SWEAT TREMOR BOD ACHE JOINT PAIN TROUBLE SLEEP AT NIGHT RESTLESSNESS Objective: 09/30/17 13:16 Vital Signs Temperature 97.7 F 09/30/17 09:48 Pulse Rate 56 L 09/30/17 09:48 Respiratory Rate 16 09/30/17 09:48 Blood Pressure 131/78 09/30/17 09:48 O2 Sat by Pulse Oximetry (%) Laboratory Last Values WBC 4.9 K/mm3 (4.0-10.0) D 09/29/17 08:00 RBC 4.25 M/mm3 (4.00-5.60) 09/29/17 08:00 Hgb 13.3 GM/dL (11.7-16.9) D 09/29/17 08:00 Hct 40.2 % (35.4-49) 09/29/17 08:00 MCV 94.6 fl (80-96) 09/29/17 08:00 MCH 31.3 pg (25.7-33.7) 09/29/17 08:00 MCHC 33.1 g/dl (32.0-35.9) 09/29/17 08:00 RDW 14.5 % (11.9-15.9) D 09/29/17 08:00 Plt Count 228 K/MM3 (134-434) 09/29/17 08:00 MPV 9.5 fl (7.5-11.1) 09/29/17 08:00 Sodium 140 mmol/L (136-145) 09/29/17 08:00 Potassium 4.3 mmol/L (3.5-5.1) 09/29/17 08:00 Chloride 105 mmol/L (98-107) 09/29/17 08:00 Carbon Dioxide 28 mmol/L (21-32) 09/29/17 08:00 Anion Gap 7 (8-16) L 09/29/17 08:00 BUN 18 mg/dL (7-18) D 09/29/17 08:00 Creatinine 0.9 mg/dL (0.7-1.3) 09/29/17 08:00 Creat Clearance w eGFR > 60 (>60) 09/29/17 08:00 Random Glucose 86 mg/dL (74-106) D 09/29/17 08:00 Calcium 8.9 mg/dL (8.5-10.1) 09/29/17 08:00 Total Bilirubin 0.5 mg/dL (0.2-1.0) D 09/29/17 08:00 AST 52 U/L (15-37) H D 09/29/17 08:00 ALT 63 U/L (12-78) D 09/29/17 08:00 Alkaline Phosphatase 59 U/L (45-117) 09/29/17 08:00 Total Protein 7.6 g/dl (6.4-8.2) 09/29/17 08:00 Albumin 3.6 g/dl (3.4-5.0) 09/29/17 08:00 Urine Color Yellow 09/28/17 21:00 Urine Appearance Clear 09/28/17 21:00 Urine pH 5.0 (5.0-8.0) 09/28/17 21:00 Ur Specific [place] 1.023 (1.001-1.035) 09/28/17 21:00 Urine Protein Negative (NEGATIVE) 09/28/17 21:00 Urine Glucose (UA) Negative (NEGATIVE) 09/28/17 21:00 Urine Ketones Negative (NEGATIVE) 09/28/17 21:00 Urine Blood Negative (NEGATIVE) 09/28/17 21:00 Urine Nitrite Negative (NEGATIVE) 09/28/17 21:00 Urine Bilirubin Negative (<2.0 mg/dL) 09/28/17 21:00 Urine Urobilinogen 2.0 mg/dL (0.2-1.0) 09/28/17 21:00 Ur Leukocyte Esterase Negative (NEGATIVE) 09/28/17 21:00 RPR Titer Nonreactive (NONREACTIVE) 09/29/17 08:00 HIV 1&2 Antibody Screen Negative 09/29/17 08:00 HIV P24 Antigen Negative 09/29/17 08:00 LAB NOTED Assessment: 09/30/17 13:16 WITHDRAWAL SX Plan: CONTINUE DETOX
[2017-09-30 18:57] VITALS: BP 128/72; PULSE 68; TEMP 98.2
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
--- NOTE | 2017-09-30 19:56 | DS ---
[facility] Detox Discharge Summary Admission Date: 09/28/17 Discharge Date: 09/30/17 - History Additional Comments: Pt is leaving AMA. Pt is A & O x 3, gait is slightly unsteady - Physical Exam Results Vital Signs: Vital Signs Temperature 98.2 F 09/30/17 18:56 Pulse Rate 68 09/30/17 18:56 Respiratory Rate 18 09/30/17 18:56 Blood Pressure 128/72 09/30/17 18:56 O2 Sat by Pulse Oximetry (%) - Medication Discharge Medications: Ambulatory Orders NK [No Known Home Medication] 05/10/17 - Diagnosis (1) Nicotine dependence Current Visit: Yes Status: Acute Qualifiers: Nicotine product type: cigarettes Substance use status: in withdrawal Qualified Code(s): F17.213 - Nicotine dependence, cigarettes, with withdrawal (2) Alcohol dependence with uncomplicated withdrawal Current Visit: Yes Status: Chronic (3) Cannabis dependence Current Visit: Yes Status: Chronic (4) Cocaine dependence Current Visit: Yes Status: Chronic Qualifiers: Substance use status: uncomplicated Qualified Code(s): F14.20 - Cocaine dependence, uncomplicated (5) Low back pain Current Visit: Yes Status: Chronic Qualifiers: Chronicity: chronic Back pain laterality: unspecified Sciatica presence: unspecified whether sciatica present Qualified Code(s): M54.5 - Low back pain ; G89.29 - Other chronic pain (6) Opioid dependence with withdrawal Current Visit: Yes Status: Chronic - AMA Did Patient Leave Against Medical Advice: Yes
[2017-09-30] MEDS ORDERED: chlordiazePOXIDE 5 MG CAPSULE PO SCH (23:00)
[2017-10-01] MEDS ORDERED: chlordiazePOXIDE HCL 10 MG CAPSULE PO SCH (23:00)
[2017-10-02] MEDS ORDERED: METHADONE HCL 10 MG TABLET (FOR DETOX USE ONLY) PO SCH (10:00)
[2017-10-03] MEDS ORDERED: METHADONE HCL 5 MG TABLET (FOR DETOX USE ONLY) PO SCH (06:00)
== END 2017-09-30 19:25 | disposition left against medical advice (07) | DRG 770 ==
LOC: YASAS 16:56 → Y6N 21:19
PROVIDERS: ADMIT Family Medicine Addiction Medicine; ATTEND Family Medicine Addiction Medicine
PROC: HZ2ZZZZ Detoxification Services for Substance Abuse Treatment (ICD-10-PCS; principal; 2017-09-28)
DX: F11.23 Opioid dependence with withdrawal (principal); F10.230 Alcohol dependence with withdrawal, uncomplicated; F14.20 Cocaine dependence, uncomplicated; F12.20 Cannabis dependence, uncomplicated; F17.213 Nicotine dependence, cigarettes, with withdrawal; F32.9 Major depressive disorder, single episode, unspecified; F39 Unspecified mood [affective] disorder; M54.5 Low back pain; G89.29 Other chronic pain; Z91.5 Personal history of self-harm; Z91.018 Allergy to other foods; Z59.0 Homelessness
CPT/HCPCS: 36415; 80053; 81003; 85027; 86593; 87389; 93005; 93010

== ENCOUNTER 2018-03-01 10:12 | Inpatient (IN) | payer OTHER ==
[2018-03-01 10:27] VITALS: BMI 23.7
--- NOTE | 2018-03-01 11:01 | HP ---
COWS - Scale Resting Pulse: 0= [place] 80 or Below Sweatin= Chills/Flushing Restless Observation: 1= Difficult to Sit Still Pupil Size: 1= Pupils >than Normal Bone or Joint Aches: 2= Severe Diffuse Aches Runny Nose/ Eye Tearin= Runny Nose/Eyes GI Upset > 30mins: 2= Nausea/Diarrhea Tremor Observation: 2= Slight Tremor Visible Yawning Observation: 1= 1-2x During Session Anxiety or Irritability: 2=Irritable/Anxious Goose Flesh Skin: 0=Smooth Skin COWS Score: 14 CIWA Score Nausea/Vomitin Muscle Tremors: 2 Anxiety: 2 Agitation: 2 Paroxysmal Sweats: 1-Minimal Palms Moist Orientation: 0-Oriented Tacttile Disturbances: 1-Very Mild Itch/Numbness Auditory Disturbances: 1-Very Mild Visual Disturbances: 0-None Headache: 2-Mild CIWA-Ar Total Score: 13 - Admission Criteria [facility]ASAS Guidelines: Admission for Medically Managed Detox: Requires at least one of the followin. CIWA greater than 12 2. Seizures within the past 24 hours 3. Delirium tremens within the past 24 hours 4. Hallucinations within the past 24 hours 5. Acute intervention needed for co occurring medical disorder 6. Acute intervention needed for co occurring psychiatric disorder 7. Severe withdrawal that cannot be handled at a lower level of care (continued vomiting, continued diarrhea, abnormal vital signs) requiring intravenous medication and/or fluids 8. Patient presents the following: CIWA greater than 12 Admission Criteria Met: Admission criteria met Admission ROS [facility] Chief Complaint: i need help to stop using heroin,alcohol,cocaine and marijuana Allergies/Adverse Reactions: Allergies Allergy/AdvReac Type Severity Reaction Status Date / Time shellfish derived Allergy Severe Hives Verified 03/01/18 10:50 No Known Drug Allergies Allergy Verified 03/01/18 10:50 pasta Allergy Intermediate Hives Uncoded 03/01/18 10:50 NKDA Allergy Uncoded 03/01/18 10:50 History of Present Illness: this 47 years old male with heroin,alcohol,cocaine and marijuana dependence seeking detox,withdrawal symptom,last detox 09/28/17 to 09/30/17 not completed history of hypertension no med weight loss insomnia longest period of sobriety 5 years multiple admissions in detox and keep relapsing Exam Limitations: No Limitations - Ebola screening Have you traveled outside of the country in the last 21 days: No Have you had contact with anyone from an Ebola affected area: No Have you been sick,other than usual withdrawal symptoms: No Do you have a fever: No - Review of Systems Constitutional: Chills, Loss of Appetite, Night Sweats, Changes in sleep, Weakness, Unintentional Wgt. Loss EENT: reports: Tearing, Nose Congestion Respiratory: reports: No Symptoms reported Cardiac: reports: No Symptoms Reported GI: reports: Nausea, Poor Appetite, Abdominal cramping : reports: No Symptoms Reported Musculoskeletal: reports: Back Pain, Joint Pain, Muscle Pain, Joint Stiffness Integumentary: reports: Dryness Neuro: reports: Headache, Tremors Endocrine: reports: No Symptoms Reported Hematology: reports: No Symptoms Reported Psychiatric: reports: No Sypmtoms Reported, Judgement Intact, Mood/Affect Appropiate, Orientated x3 (insomnia) Patient History - Patient Medical History Hx Anemia: No Hx Asthma: No Hx Chronic Obstructive Pulmonary Disease (COPD): No Hx Cancer: No Hx Cardiac Disorders: No Hx Congestive Heart Failure: No Hx Hypertension: No Hx Hypercholesterolemia: No Hx Pacemaker: No HX Cerebrovascular Accident: No Hx Seizures: No Hx Dementia: No Hx Diabetes: No Hx Gastrointestinal Disorders: No Hx Liver Disease: No Hx Genitourinary Disorders: No Hx Sexually Transmitted Disorders: No Hx Renal Disease (ESRD): No Hx Thyroid Disease: No Hx Human Immunodeficiency Virus (HIV): No ( NEGATIVE HX last 2017) Hx Hepatitis C: No Hx Depression: Yes (Remeron and Benadryl) Hx Suicide Attempt: Yes (Tried to hang himself as a teen;DENIES CURRENT S/H/I) Hx Bipolar Disorder: No Hx Schizophrenia: No Other Medical History: no suicidal,no homicidal,had surgery of infection of back - Patient Surgical History Past Surgical History: Yes Hx Neurologic Surgery: Yes (Spinal sx for an infection in [facility] 04/01 ) Hx Cataract Extraction: No Hx Cardiac Surgery: No Hx Lung Surgery: No Hx Breast Surgery: No Hx Breast Biopsy: No Hx Abdominal Surgery: No Hx Appendectomy: No Hx Cholecystectomy: No Hx Genitourinary Surgery: No Hx Section: No Hx Orthopedic Surgery: No Anesthesia Reaction: No - PPD History Previous Implant?: Yes Documented Results: Negative w/o proof Implanted On Prior R Admission?: Yes Date: 02/04/17 Results: 0 mm PPD to be Administered?: Yes - Smoking Cessation Smoking history: Current every day smoker Have you smoked in the past 12 months: Yes Aproximately how many cigarettes per day: 20 Hx Chewing Tobacco Use: No Initiated information on smoking cessation: Yes 'Breaking Loose' booklet given: 03/01/18 - Substance & Tx. History Hx Alcohol Use: Yes Hx Substance Use: Yes Substance Use Type: Alcohol, Cocaine, Heroin, Marijuana Hx Substance Use Treatment: Yes ([facility] 09/28/17 to 09/30/17 not completed) - Substances Abused Heroin Route: Inhalation Frequency: Daily Amount used: 10 bags Age of first use: 19 Date of Last Use: 02/28/18 Cocaine Route: Smoking Frequency: Daily Amount used: $200-300 Age of first use: 18 Date of Last Use: 02/28/18 Alcohol-vodka/gin Route: Oral Frequency: Daily Amount used: 2-3 pts. Age of first use: 14 Date of Last Use: 02/28/18 Family Disease History - Family Disease History Family Disease History: Diabetes: Sister (2 SISTERS), Other: Father (ALCOHOLISM- ) Admission Physical Exam [facility] - Vital Signs Vital Signs: Vital Signs - 24 hr 03/01/18 10:26 Temperature 97.5 F L Pulse Rate 62 Respiratory 19 Rate Blood Pressure 154/100 - Physical General Appearance: Yes: Moderate Distress, Tremorous, Irritable, Sweating, Anxious HEENTM: Yes: Normal ENT Inspection, HUGO, Pharynx Normal Respiratory: Yes: Lungs Clear, Normal Breath Sounds, No Respiratory Distress Neck: Yes: Within Normal Limits, Supple, Trachea in good position Breast: Yes: Within Normal Limits Cardiology: Yes: Within Normal Limits, Regular Rhythm, Regular Rate, S1, S2 Abdominal: Yes: Within Normal Limits, Normal Bowel Sounds, Non Tender, Soft Genitourinary: Yes: Within Normal Limits Back: Yes: Muscle Spasm Musculoskeletal: Yes: Back pain, Joint Stiffness, Muscle Pain Extremities: Yes: Normal Range of Motion, Tremors Neurological: Yes: Within Normal Limits, tack puller II-XII NML intact, Alert, Motor Strength 5/5 Integumentary: Yes: Dry Lymphatic: Yes: Within Normal Limits - Diagnostic (1) Opioid dependence with withdrawal Current Visit: Yes Status: Acute (2) Tinea pedis Current Visit: No Status: Acute Qualifiers: Laterality: bilateral Qualified Code(s): B35.3 - Tinea pedis (3) Weight loss Current Visit: No Status: Acute (4) Alcohol dependence with uncomplicated withdrawal Current Visit: Yes Status: Acute (5) Cannabis dependence Current Visit: Yes Status: Chronic (6) Cocaine dependence Current Visit: Yes Status: Chronic Qualifiers: Substance use status: uncomplicated Qualified Code(s): F14.20 - Cocaine dependence, uncomplicated (7) Low back pain Current Visit: No Status: Chronic Qualifiers: Chronicity: chronic Back pain laterality: unspecified Sciatica presence: unspecified whether sciatica present Qualified Code(s): M54.5 - Low back pain ; G89.29 - Other chronic pain (8) Dry skin Current Visit: Yes Status: Acute (9) Schizoaffective disorder Current Visit: Yes Status: Chronic Comment: According to old records.Chronically non adherent to OPD care + medications.Lost to follow- up.Patient declines to get back on medications. Cleared for Admission [facility] - Detox or Rehab [facility] Level of Care: Medically Managed Detox Regimen/Protocol: Methadone/Librium [facility] Breath Alcohol Content Breath Alcohol Content: 0 Urine Drug Screen - Results Drug Screen Negative: No Urine Drug Screen Results: THC-Marijuana, SUZANNE-Cocaine, FEN-Fentanyl, BUP- Suboxone
[2018-03-01] MEDS ORDERED: hydrOXYzine PAMOATE 50 MG CAPSULE (FP) PO PRN (11:16)
[2018-03-01] MEDS ORDERED: MAG HYDROX/AL HYDROX/SIMETH 30 ML UNIT-DOSE CUP PO PRN (11:16)
[2018-03-01] MEDS ORDERED: MAGNESIUM CITRATE 300 ML BOTTLE PO PRN (11:16)
[2018-03-01] MEDS ORDERED: P-EPHED 60MG/TRIPROLIDI 2.5MG TABLET PO PRN (11:16)
[2018-03-01] MEDS ORDERED: guaiFENesin/D-METHORPHAN HB 10 ML UNIT-DOSE CUPS PO PRN (11:16)
[2018-03-01] MEDS ORDERED: MENTHOL/PHENOL 1 EACH UD MM PRN (11:16)
[2018-03-01] MEDS ORDERED: LOPERAMIDE HCL 2 MG CAPSULE PO PRN (11:16)
[2018-03-01] MEDS ORDERED: ACETAMINOPHEN 325 MG TABLET (FP) PO PRN (11:16)
[2018-03-01] MEDS ORDERED: MAGNESIUM HYDROX 2400MG/30ML ORAL SUSPENSION 30 ML CUP PO PRN (11:16)
[2018-03-01] MEDS ORDERED: chlordiazePOXIDE HCL 25 MG CAPSULE PO PRN (11:16)
[2018-03-01] MEDS ORDERED: METHADONE HCL 10 MG TABLET (FOR DETOX USE ONLY) PO ONE ×2 (12:00→23:00)
[2018-03-01] MEDS: VITAMINS A AND D TOPICAL OINTMENT 60 GM TUBE TP SCH ×3 (12:05→23:32)
--- NOTE | 2018-03-01 14:41 | CONSULT ---
[facility] Psychiatric Consult - Data Date of interview: 03/01/18 Admission source: [facility] Identifying data: Another admission to [facility] for this 47 y/o AA male seeking detoxification treatment, on , for alcohol, cannabis, heroin and cocaine dependence. Patient is single, a father of two, homeless, unemployed and currently supported on welfare. Substance Abuse History: Discussed with the patient. Patient confirms that he abuses marihuana, cocaine, alcohol and cocaine. Not able to provide details due to moderately sedated state. Refer to [facility] report : Smoking history: Current every day smoker. Have you smoked in the past 12 months: Yes. Aproximately how many cigarettes per day: 20. Hx Chewing Tobacco Use: No. Initiated information on smoking cessation: Yes. 'Breaking Loose' booklet given: . - Substance & Tx. History. Hx Alcohol Use: Yes. Hx Substance Use: Yes. Substance Use Type: Alcohol, Cocaine, Heroin, Marijuana. Hx Substance Use Treatment: Yes ([facility] 09/28/17 to 09/30/17 not completed) Medical History: taken from chart : history of spinal surgery (March 2017). Psychiatric History: In this interview, the patient denies history of psychiatric hospitalizations. Denies having mental illness. Records indicate that Mr Pineda has been diagnosed, in the past, with Schizoaffective Disorder and that he received treatment with geodon + remeron. Presents with chronic non- adherence with psychiatric care. Remote history of one suicide attempt (via hanging at age 19). Physical/Sexual Abuse/Trauma History: No information. Additional Comment: Urine Drug Screen Results: THC-Marijuana, SUZANNE-Cocaine, FEN- Fentanyl, BUP-Suboxone. Noted. Mental Status Exam - Mental Status Exam Alert and Oriented to: Place, Person Cognitive Function: Impaired Patient Appearance: Unkempt, Disheveled Mood: Withdrawn Affect: Mood Congruent Patient Behavior: Sedated (moderately), Fatigued Speech Pattern: Delayed, Slurred, Garbled (at times) Voice Loudness: Moderately Soft/Quiet Thought Process: Disoriented Thought Disorder: Not Present Hallucinations: Denies Suicidal Ideation: Denies Homicidal Ideation: Denies Insight/Judgement: Poor Sleep: Well Appetite: Good (empty food tray at beside) Gait/Station: Normal (observed a ambulatory prior to examination) Psychiatric Findings - Problem List ([place] 1, 2,3) (1) Alcohol dependence with uncomplicated withdrawal Current Visit: Yes Status: Acute (2) Opioid dependence with withdrawal Current Visit: Yes Status: Acute (3) Cocaine dependence Current Visit: Yes Status: Acute Qualifiers: Substance use status: uncomplicated Qualified Code(s): F14.20 - Cocaine dependence, uncomplicated (4) Cannabis dependence Current Visit: Yes Status: Acute (5) Nicotine dependence Current Visit: Yes Status: Acute Qualifiers: Nicotine product type: cigarettes Substance use status: in withdrawal Qualified Code(s): F17.213 - Nicotine dependence, cigarettes, with withdrawal (6) Substance induced mood disorder Current Visit: Yes Status: Acute (7) Non-compliant patient Current Visit: Yes Status: Acute - Initial Treatment Plan Initial Treatment Plan: Psychoeducation when fully awake and cooperative. Sleep hygiene. Detoxification in progress. Observation.
[2018-03-01] MEDS: chlordiazePOXIDE HCL 25 MG CAPSULE PO SCH ×2 (17:10→22:38)
[2018-03-01] MEDS: NICOTINE POLACRILEX 2 MG GUM BUC PRN ×2 (19:17→22:42)
[2018-03-01] MEDS ORDERED: MELATONIN 5 MG TABLETS PO PRN (22:00)
[2018-03-01] MEDS: THIAMINE HCL 100 MG TABLET (FP) PO SCH (22:39)
[2018-03-01 23:35] LABS: URINE APPEARANCE CLEAR; URINE BILIRUBIN NEGATIVE (<2.0 mg/dL); URINE COLOR LTYELLOW; URINE GLUCOSE (UA) NEGATIVE (NEGATIVE); URINE KETONE NEGATIVE (NEGATIVE); URINE LEUK ESTERASE NEGATIVE (NEGATIVE); URINE NITRITE NEGATIVE (NEGATIVE); URINE PROTEIN NEGATIVE (NEGATIVE); URINE UROBILINOGEN NEGATIVE mg/dL (0.2-1.0)
[2018-03-02] MEDS: VITAMINS A AND D TOPICAL OINTMENT 60 GM TUBE TP SCH ×4 (05:27→23:24)
[2018-03-02] MEDS: NICOTINE POLACRILEX 2 MG GUM BUC PRN ×4 (05:27→22:46)
[2018-03-02] MEDS: chlordiazePOXIDE HCL 25 MG CAPSULE PO SCH ×4 (05:27→22:43)
[2018-03-02] MEDS ORDERED: METHADONE HCL 10 MG TABLET (FOR DETOX USE ONLY) PO SCH (10:00)
[2018-03-02 10:36] LABS: HEMATOCRIT 43.7 % (35.4-49); HEMOGLOBIN 13.8 GM/dL (11.7-16.9); MCHC 31.6 g/dl (32.0-35.9); MEAN CELL VOLUME 94.9 fl (80-96); MEAN PLT VOLUME 10.8 fl (7.5-11.1); PLATELET COUNT 181 K/MM3 (134-434); RBC 4.61 M/mm3 (4.00-5.60); WHITE BLOOD COUNT 4.5 K/mm3 (4.0-10.0)
[2018-03-02] MEDS: PRENATAL VITAMINS W/ FOLIC ACID TABLET (FP) PO SCH (10:41)
[2018-03-02] MEDS: IBUPROFEN 400 MG TABLET (FP) PO PRN (10:46)
[2018-03-02 11:10] LABS: ALBUMIN 3.9 g/dl (3.4-5.0); ALK PHOS 56 U/L (45-117); ANION GAP 9 MMOL/L (8-16); BILIRUBIN,TOTAL 0.8 mg/dL (0.2-1); BLOOD UREA NITROGEN 9 mg/dL (7-18); CALCIUM 9.1 mg/dL (8.5-10.1); CHLORIDE 102 mmol/L (98-107); CO2 25 mmol/L (21-32); CREATININE 0.9 mg/dL (0.55-1.3); GLUCOSE,RANDOM 121 mg/dL (74-106); POTASSIUM 3.8 mmol/L (3.5-5.1); SGOT/AST 31 U/L (15-37); SGPT/ALT 28 U/L (13-61); SODIUM 136 mmol/L (136-145); TOT PROT 7.4 g/dl (6.4-8.2)
--- NOTE | 2018-03-02 11:33 | PN ---
S CIWA - CIWA Score Nausea/Vomitin-Mild Nausea/No Vomiting Muscle Tremors: 3 Anxiety: 3 Agitation: 1-Slight > Activity Paroxysmal Sweats: 2 Orientation: 0-Oriented Tacttile Disturbances: 0-None Auditory Disturbances: 0-None Visual Disturbances: 0-None Headache: 0-None Present CIWA-Ar Total Score: 10 S COWS - Scale Resting Pulse: 0= [place] 80 or Below Sweatin= Chills/Flushing Restless Observation: 1= Difficult to Sit Still Pupil Size: 0= Normal to Room Light Bone or Joint Aches: 0= None Runny Nose/ Eye Tearin= None GI Upset > 30mins: 2= Nausea/Diarrhea Tremor Observation of Outstretched Hands: 2= Slight Tremor Visible Yawning Observation: 0= None Anxiety or Irritability: 2=Irritable/Anxious Goose Flesh Skin: 0=Smooth Skin COWS Score: 8 S Progress Note (SOAP) Subjective: PATIENT C/O CHILLS, SWEATING, BODY ACHES AND SHAKES. Objective: 03/02/18 11:31 Vital Signs Temperature 97.0 F L 03/02/18 10:00 Pulse Rate 79 03/02/18 10:00 Respiratory Rate 17 03/02/18 10:00 Blood Pressure 112/67 03/02/18 10:00 O2 Sat by Pulse Oximetry (%) Laboratory Tests 03/01/18 03/02/18 03/02/18 15:46 05:35 05:35 WBC 4.5 RBC 4.61 Hgb 13.8 Hct 43.7 MCV 94.9 MCH 30.0 MCHC 31.6 L RDW 14.0 Plt Count 181 D MPV 10.8 D Sodium 136 Potassium 3.8 Chloride 102 Carbon Dioxide 25 Anion Gap 9 BUN 9 Creatinine 0.9 Creat Clearance w eGFR > 60 Random Glucose 121 H Calcium 9.1 Total Bilirubin 0.8 AST 31 ALT 28 Alkaline Phosphatase 56 Total Protein 7.4 Albumin 3.9 Urine Color Ltyellow Urine Appearance Clear Urine pH 6.0 Ur Specific [place] 1.012 Urine Protein Negative Urine Glucose (UA) Negative Urine Ketones Negative Urine Blood Negative Urine Nitrite Negative Urine Bilirubin Negative Urine Urobilinogen Negative Ur Leukocyte Esterase Negative PE: SKIN WARM, MILD SWEATING ALERT AND ORIENTED X 3 EXT + TREMORS AMB AD LORI ANXIOUS Assessment: 03/02/18 11:32 WITHDRAWAL SX Plan: CONTINUE DETOX ENCOURAGE ORAL FLUIDS CONTINUE TO MONITOR CLINICALLY
[2018-03-02] MEDS ORDERED: FLU VACCINE QUAD 60 MCG/0.5 ML (MDV 18-19) IM ONE (12:00)
--- NOTE | 2018-03-02 15:19 | PN ---
S Progress Note Note: NOTIFIED BY RN THAT PATIENT C/O CHEST PAIN. PATIENT EVALUATED AT BEDSIDE. ALERT AND ORIENTED X 3. PATIENT STATES " MY CHEST AND STOMACH HURT BUT I AM HUNGRY TOO ". PATIENT DENIES N/V/D, JAW PAIN, SOB, LEFT ARM NUMBNESS/TINGLING AND DIZZINESS. Vital Signs Temperature 97.6 F 03/02/18 14:17 Pulse Rate 70 03/02/18 14:17 Respiratory Rate 18 03/02/18 14:17 Blood Pressure 134/79 03/02/18 14:17 O2 Sat by Pulse Oximetry (%) PE: ALERT AND ORIENTED X 3 SKIN WARM AND DRY CAR S1S2, RRR RESP CTA BL NO WHEEZES OR RALES GI SOFT, BS+, NT EXT NO EDEMA, FULL ROM A/P: CHEST PAIN EKG NOW: RESULTS NSR MOTRIN PER PRN ORDER MYLANTA/MOM PRN CONTINUE TO MONITOR CLINICALLY
[2018-03-02] MEDS: THIAMINE HCL 100 MG TABLET (FP) PO SCH (22:43)
[2018-03-03] MEDS: chlordiazePOXIDE HCL 25 MG CAPSULE PO SCH ×2 (05:33→10:33)
[2018-03-03] MEDS: NICOTINE POLACRILEX 2 MG GUM BUC PRN ×2 (05:34→10:36)
[2018-03-03] MEDS: VITAMINS A AND D TOPICAL OINTMENT 60 GM TUBE TP SCH ×4 (05:35→23:14)
[2018-03-03] MEDS: METHADONE HCL 5 MG TABLET (FOR DETOX USE ONLY) PO SCH (10:33)
[2018-03-03] MEDS: PRENATAL VITAMINS W/ FOLIC ACID TABLET (FP) PO SCH (10:33)
[2018-03-03] MEDS: IBUPROFEN 400 MG TABLET (FP) PO PRN (10:34)
--- NOTE | 2018-03-03 15:04 | PN ---
S CIWA - CIWA Score Nausea/Vomitin Muscle Tremors: 3 Anxiety: 3 Agitation: 3 Paroxysmal Sweats: 2 Orientation: 0-Oriented Tacttile Disturbances: 0-None Auditory Disturbances: 0-None Visual Disturbances: 0-None Headache: 1-Very Mild CIWA-Ar Total Score: 14 BHS COWS - Scale Resting Pulse: 1= [place] 81-100 Sweatin= Chills/Flushing Restless Observation: 3= Extraneous Movement Pupil Size: 0= Normal to Room Light Bone or Joint Aches: 2= Severe Diffuse Aches Runny Nose/ Eye Tearin= Runny Nose/Eyes GI Upset > 30mins: 2= Nausea/Diarrhea Tremor Observation of Outstretched Hands: 2= Slight Tremor Visible Yawning Observation: 0= None Anxiety or Irritability: 1=Feels Anxious/Irritable Goose Flesh Skin: 0=Smooth Skin COWS Score: 14 S Progress Note (SOAP) Subjective: Sweating, chills, tremor, interrupted sleep, diarrhea, polyuria (denies dysuria) Objective: 03/03/18 15:01 Last Vital Signs Temp Pulse Resp BP Pulse Ox 97.7 F 87 18 145/78 03/03/18 13:49 03/03/18 13:49 03/03/18 13:49 03/03/18 13:49 elevated b/p (145/78, denies htn) Laboratory Tests 03/01/18 03/01/18 03/02/18 12:15 15:46 05:35 WBC 4.5 RBC 4.61 Hgb 13.8 Hct 43.7 MCV 94.9 MCH 30.0 MCHC 31.6 L RDW 14.0 Plt Count 181 D MPV 10.8 D Sodium Potassium Chloride Carbon Dioxide Anion Gap BUN Creatinine Creat Clearance w eGFR Random Glucose Calcium Total Bilirubin AST ALT Alkaline Phosphatase Total Protein Albumin Urine Color Ltyellow Urine Appearance Clear Urine pH 6.0 Ur Specific [place] 1.012 Urine Protein Negative Urine Glucose (UA) Negative Urine Ketones Negative Urine Blood Negative Urine Nitrite Negative Urine Bilirubin Negative Urine Urobilinogen Negative Ur Leukocyte Esterase Negative RPR Titer HIV 1&2 Antibody Screen Negative HIV P24 Antigen Negative 03/02/18 03/02/18 05:35 05:35 WBC RBC Hgb Hct MCV MCH MCHC RDW Plt Count MPV Sodium 136 Potassium 3.8 Chloride 102 Carbon Dioxide 25 Anion Gap 9 BUN 9 Creatinine 0.9 Creat Clearance w eGFR > 60 Random Glucose 121 H Calcium 9.1 Total Bilirubin 0.8 AST 31 ALT 28 Alkaline Phosphatase 56 Total Protein 7.4 Albumin 3.9 Urine Color Urine Appearance Urine pH Ur Specific [place] Urine Protein Urine Glucose (UA) Urine Ketones Urine Blood Urine Nitrite Urine Bilirubin Urine Urobilinogen Ur Leukocyte Esterase RPR Titer Nonreactive HIV 1&2 Antibody Screen HIV P24 Antigen Labs reviewed Assessment: 03/03/18 15:02 Withdrawal symptoms Noted with elevated blood pressure Plan: Continue detox Elevated blood pressure: most likely due to withdrawal, encouraged PO water intake, start clonidine 0.1mg PO q8hr prn if b/p > 140/90, follow up with PCP post discharge for monitoring Will order urine cx due to c/o polyuria
[2018-03-03] MEDS ORDERED: cloNIDine HCL 0.1 MG TABLET PO PRN (15:06)
[2018-03-03] MEDS: chlordiazePOXIDE 5 MG CAPSULE PO SCH ×2 (17:34→22:40)
[2018-03-03] MEDS ORDERED: NICOTINE POLACRILEX 4 MG GUM BUC PRN (18:39)
--- NOTE | 2018-03-03 18:40 | PN ---
[facility] Progress Note Note: pt's nicotine gum increased to the 4mg dosage, states the 2mg is not helping. Declined the patch
[2018-03-03] MEDS: THIAMINE HCL 100 MG TABLET (FP) PO SCH (22:41)
[2018-03-04] MEDS: chlordiazePOXIDE 5 MG CAPSULE PO SCH ×2 (05:21→10:18)
[2018-03-04 05:58] VITALS: PULSE 67
[2018-03-04] MEDS: VITAMINS A AND D TOPICAL OINTMENT 60 GM TUBE TP SCH (06:57)
[2018-03-04 09:44] VITALS: BP 106/53; TEMP 97
[2018-03-04] MEDS: PRENATAL VITAMINS W/ FOLIC ACID TABLET (FP) PO SCH (10:17)
[2018-03-04] MEDS: METHADONE HCL 5 MG TABLET (FOR DETOX USE ONLY) PO SCH (10:18)
--- NOTE | 2018-03-04 11:33 | DS ---
[facility] Detox Discharge Summary Admission Date: 03/01/18 Discharge Date: 03/04/18 - History Present History: Alcohol Dependence, Opioid Dependence Additional Comments: 47 years old male admitted on 03/01/18 for alcohol and opiate withdrawal sx wants to smoke cigarettes that patch and gum not working patient insists to leave the detox unit offer alternative for cigarette nicotine patient refused - Physical Exam Results Vital Signs: Vital Signs Temperature 97.0 F L 03/04/18 09:43 Pulse Rate 67 03/04/18 09:43 Respiratory Rate 20 03/04/18 09:43 Blood Pressure 106/53 L 03/04/18 09:43 O2 Sat by Pulse Oximetry (%) Pertinent Admission Physical Exam Findings: alcohol and opiate withdrawal sx Vital Signs Temperature 97.0 F L 03/04/18 09:43 Pulse Rate 67 03/04/18 09:43 Respiratory Rate 20 03/04/18 09:43 Blood Pressure 106/53 L 03/04/18 09:43 O2 Sat by Pulse Oximetry (%) Laboratory Last Values WBC 4.5 K/mm3 (4.0-10.0) 03/02/18 05:35 RBC 4.61 M/mm3 (4.00-5.60) 03/02/18 05:35 Hgb 13.8 GM/dL (11.7-16.9) 03/02/18 05:35 Hct 43.7 % (35.4-49) 03/02/18 05:35 MCV 94.9 fl (80-96) 03/02/18 05:35 MCH 30.0 pg (25.7-33.7) 03/02/18 05:35 MCHC 31.6 g/dl (32.0-35.9) L 03/02/18 05:35 RDW 14.0 % (11.9-15.9) 03/02/18 05:35 Plt Count 181 K/MM3 (134-434) D 03/02/18 05:35 MPV 10.8 fl (7.5-11.1) D 03/02/18 05:35 Sodium 136 mmol/L (136-145) 03/02/18 05:35 Potassium 3.8 mmol/L (3.5-5.1) 03/02/18 05:35 Chloride 102 mmol/L (98-107) 03/02/18 05:35 Carbon Dioxide 25 mmol/L (21-32) 03/02/18 05:35 Anion Gap 9 MMOL/L (8-16) 03/02/18 05:35 BUN 9 mg/dL (7-18) 03/02/18 05:35 Creatinine 0.9 mg/dL (0.55-1.3) 03/02/18 05:35 Creat Clearance w eGFR > 60 (>60) 03/02/18 05:35 Random Glucose 121 mg/dL (74-106) H 03/02/18 05:35 Calcium 9.1 mg/dL (8.5-10.1) 03/02/18 05:35 Total Bilirubin 0.8 mg/dL (0.2-1) 03/02/18 05:35 AST 31 U/L (15-37) 03/02/18 05:35 ALT 28 U/L (13-61) 03/02/18 05:35 Alkaline Phosphatase 56 U/L (45-117) 03/02/18 05:35 Total Protein 7.4 g/dl (6.4-8.2) 03/02/18 05:35 Albumin 3.9 g/dl (3.4-5.0) 03/02/18 05:35 Urine Color Ltyellow 03/01/18 15:46 Urine Appearance Clear 03/01/18 15:46 Urine pH 6.0 (5.0-8.0) 03/01/18 15:46 Ur Specific [place] 1.012 (1.010-1.035) 03/01/18 15:46 Urine Protein Negative (NEGATIVE) 03/01/18 15:46 Urine Glucose (UA) Negative (NEGATIVE) 03/01/18 15:46 Urine Ketones Negative (NEGATIVE) 03/01/18 15:46 Urine Blood Negative (NEGATIVE) 03/01/18 15:46 Urine Nitrite Negative (NEGATIVE) 03/01/18 15:46 Urine Bilirubin Negative (<2.0 mg/dL) 03/01/18 15:46 Urine Urobilinogen Negative mg/dL (0.2-1.0) 03/01/18 15:46 Ur Leukocyte Esterase Negative (NEGATIVE) 03/01/18 15:46 RPR Titer Nonreactive (NONREACTIVE) 03/02/18 05:35 HIV 1&2 Antibody Screen Negative 03/01/18 12:15 HIV P24 Antigen Negative 03/01/18 12:15 lab noted - Treatment Hospital Course: Detox Protocol Followed, Responded well Patient has Accepted a Rehab Referral to: [facility] and groups - Medication Discharge Medications: Ambulatory Orders NK [No Known Home Medication] 05/10/17 - Diagnosis (1) Alcohol dependence with uncomplicated withdrawal Current Visit: Yes Status: Acute (2) Nicotine dependence Current Visit: Yes Status: Acute Qualifiers: Nicotine product type: cigarettes Substance use status: in withdrawal Qualified Code(s): F17.213 - Nicotine dependence, cigarettes, with withdrawal (3) Opioid dependence with withdrawal Current Visit: Yes Status: Acute (4) Substance induced mood disorder Current Visit: Yes Status: Suspected (5) Weight loss Current Visit: Yes Status: Acute - AMA Did Patient Leave Against Medical Advice: Yes
[2018-03-04] MEDS ORDERED: chlordiazePOXIDE HCL 10 MG CAPSULE PO SCH (17:00)
[2018-03-05] MEDS ORDERED: METHADONE HCL 10 MG TABLET (FOR DETOX USE ONLY) PO SCH (10:00)
[2018-03-06] MEDS ORDERED: METHADONE HCL 5 MG TABLET (FOR DETOX USE ONLY) PO SCH (06:00)
== END 2018-03-04 11:07 | disposition left against medical advice (07) | DRG 770 ==
LOC: YASAS 10:12 → Y3N 11:24
PROC: HZ2ZZZZ Detoxification Services for Substance Abuse Treatment (ICD-10-PCS; principal; 2018-03-01)
DX: F11.23 Opioid dependence with withdrawal (principal); F10.230 Alcohol dependence with withdrawal, uncomplicated; F14.20 Cocaine dependence, uncomplicated; F12.20 Cannabis dependence, uncomplicated; F17.213 Nicotine dependence, cigarettes, with withdrawal; F25.9 Schizoaffective disorder, unspecified; F19.24 Other psychoactive substance dependence with psychoactive substance-induced mood disorder; R03.0 Elevated blood-pressure reading, without diagnosis of hypertension; R07.9 Chest pain, unspecified; B35.3 Tinea pedis; L85.3 Xerosis cutis; M54.5 Low back pain; G89.29 Other chronic pain; R63.4 Abnormal weight loss; Z68.23 Body mass index [BMI] 23.0-23.9, adult; Z91.5 Personal history of self-harm; Z59.0 Homelessness
CPT/HCPCS: 36415; 80053; 81003; 85027; 86593; 87086; 87389; 90688; G0008

== ENCOUNTER 2019-06-05 09:23 | Inpatient (IN) | payer OTHER ==
--- NOTE | 2019-06-05 09:55 | BHS.RME ---
Substance Use & Tx History - Substance Use History Opiates (Heroin) Substance amount: 2 bundles Frequency of use: Daily Date of Last Use: 06/04/19 Alcohol Substance amount: 2-3 pints whiskey Frequency of use: Daily Date of Last Use: 06/04/19 - Last Treatment Treatment type: Substance Use Disorder (ABDELRAHMAN) Physical/Psych/Mental Status - Behavior General Behavior: Decreased activity - Cooperativeness Cooperativeness: Cooperative - Thinking Thought Processes: Tight - Physical Health Problems Is patient presently having any pain?: Yes (left dorsum of hand, injection site) COWS - Scale Resting Pulse: 0= [place] 80 or Below Sweatin= No chills or Flushing Restless Observation: 0= Sits Still Pupil Size: 0= Normal to Room Light Bone or Joint Aches: 1= Mild Discomfort Runny Nose/ Eye Tearin= Runny Nose/Eyes GI Upset > 30mins: 2= Nausea/Diarrhea Tremor Observation: 1= Tremor [place], Not Seen Yawning Observation: 0= None Anxiety or Irritability: 1=Feels Anxious/Irritable Goose Flesh Skin: 0=Smooth Skin COWS Score: 7 CIWA Nausea/Vomitin-Mild Nausea/No Vomiting Muscle Tremors: 1-None Visible, but [place] Anxiety: 1-Mildly Anxious Agitation: 1-Slight > Activity Paroxysmal Sweats: 3 Orientation: 2-Disoriented Date<2 days Tacttile Disturbances: 0-None Auditory Disturbances: 0-None Visual Disturbances: 0-None Headache: 2-Mild CIWA-Ar Total Score: 11
[2019-06-05 10:22] VITALS: BMI 30.4
--- NOTE | 2019-06-05 10:45 | HP ---
COWS - Scale Resting Pulse: 0= MT 80 or Below Sweatin= No chills or Flushing Restless Observation: 0= Sits Still Pupil Size: 0= Normal to Room Light Bone or Joint Aches: 1= Mild Discomfort Runny Nose/ Eye Tearin= Runny Nose/Eyes GI Upset > 30mins: 2= Nausea/Diarrhea Tremor Observation: 1= Tremor Zebulon, Not Seen Yawning Observation: 0= None Anxiety or Irritability: 1=Feels Anxious/Irritable Goose Flesh Skin: 0=Smooth Skin COWS Score: 7 CIWA Score Nausea/Vomitin-Mild Nausea/No Vomiting Muscle Tremors: 1-None Visible, but Zebulon Anxiety: 1-Mildly Anxious Agitation: 1-Slight > Activity Paroxysmal Sweats: 3 Orientation: 2-Disoriented Date<2 days Tacttile Disturbances: 0-None Auditory Disturbances: 0-None Visual Disturbances: 0-None Headache: 2-Mild CIWA-Ar Total Score: 11 - Admission Criteria OASAS Guidelines: Admission for Medically Managed Detox: Requires at least one of the followin. CIWA greater than 12 2. Seizures within the past 24 hours 3. Delirium tremens within the past 24 hours 4. Hallucinations within the past 24 hours 5. Acute intervention needed for co occurring medical disorder 6. Acute intervention needed for co occurring psychiatric disorder 7. Severe withdrawal that cannot be handled at a lower level of care (continued vomiting, continued diarrhea, abnormal vital signs) requiring intravenous medication and/or fluids 8. Admitting History and Physical - Admission Chief Complaint: " I want to be here to get off drugs." History of Present Illness: 48 year old male with history of back pain and spinal surgery. He has opioid dependence with withdrawals, and alcohol dependence with withdrawals: Heroin: 2 bundles IV, started at 19, last used yesterday. Overdosed multiple time and last one 2017. Alcohol: 2 pints whisky daily, has had blackout and falls , started age 8, he last blacked out 2 weeks ago. Denies seizures with withdrawals. Nicotine: 1 ppd, started at 14 years old Psych: Depression and Schizoaffective Disorder on no meds for over 1 month. Surg: Spinal surgery 2017 Patient is Homeless and is in long term systems. Patient has no legal issues pending. Poor support systems due to family being in the [facility]. History Source: Patient Limitations to Obtaining History: No Limitations - Smoking History Smoking history: Current every day smoker Have you smoked in the past 12 months: Yes Aproximately how many cigarettes per day: 20 - Alcohol/Substance Use Hx Alcohol Use: Yes Admission [facility] Allergies/Adverse Reactions: Allergies Allergy/AdvReac Type Severity Reaction Status Date / Time shellfish derived Allergy Severe Hives Verified 06/05/19 10:17 No Known Drug Allergies Allergy Verified 06/05/19 10:17 pasta Allergy Intermediate Hives Uncoded 06/05/19 10:17 NKDA Allergy Uncoded 06/05/19 10:17 Exam Limitations: No Limitations - Ebola screening Have you traveled outside of the country in the last 21 days: No Have you had contact with anyone from an Ebola affected area: No Have you been sick,other than usual withdrawal symptoms: No Do you have a fever: No - Review of Systems Constitutional: Chills, Diaphoresis, Unintentional Wgt. Loss EENT: reports: No Symptoms Reported Respiratory: reports: No Symptoms reported Cardiac: reports: No Symptoms Reported GI: reports: Constipated : reports: No Symptoms Reported Musculoskeletal: reports: No Symptoms Reported Integumentary: reports: No Symptoms Reported Neuro: reports: No Symptoms reported Endocrine: reports: No Symptoms Reported Hematology: reports: No Symptoms Reported Psychiatric: reports: Judgement Intact, Orientated x3, Agitated, Anxious Other Systems: Reviewed and Negative Patient History - Patient Medical History Hx Anemia: No Hx Asthma: No Hx Chronic Obstructive Pulmonary Disease (COPD): No Hx Cancer: No Hx Cardiac Disorders: No Hx Congestive Heart Failure: No Hx Hypertension: No Hx Hypercholesterolemia: No Hx Pacemaker: No HX Cerebrovascular Accident: No Hx Seizures: No Hx Dementia: No Hx Diabetes: No Hx Gastrointestinal Disorders: No Hx Liver Disease: No Hx Genitourinary Disorders: No Hx Sexually Transmitted Disorders: No Hx Renal Disease (ESRD): No Hx Thyroid Disease: No Hx Human Immunodeficiency Virus (HIV): No ( NEGATIVE HX last 2017) Hx Hepatitis C: No Hx Depression: Yes Hx Suicide Attempt: No Hx Bipolar Disorder: No Hx Schizophrenia: Yes - Patient Surgical History Past Surgical History: Yes Hx Neurologic Surgery: Yes (Spinal sx for an infection in [facility] 04/01 ) Hx Cataract Extraction: No Hx Cardiac Surgery: No Hx Lung Surgery: No Hx Breast Surgery: No Hx Breast Biopsy: No Hx Abdominal Surgery: No Hx Appendectomy: No Hx Cholecystectomy: No Hx Genitourinary Surgery: No Hx Section: No Hx Orthopedic Surgery: No Anesthesia Reaction: No - PPD History Previous Implant?: Yes Documented Results: Negative w/o proof Implanted On Prior [facility] Admission?: No Date: 02/26/19 (not done here) Results: 0 mm PPD to be Administered?: Yes - Smoking Cessation Smoking history: Current every day smoker Have you smoked in the past 12 months: Yes Aproximately how many cigarettes per day: 20 Cigars Per Day: 0 Hx Chewing Tobacco Use: No Initiated information on smoking cessation: Yes 'Breaking Loose' booklet given: 06/05/19 - Substances abused Heroin Substance route: Injection Frequency: Daily Amount used: 2 bundles Age of first use: 19 Date of last use: 06/04/19 Alcohol Substance route: Oral Frequency: Daily Amount used: 2 pints of whiskey Age of first use: 8 Date of last use: 06/04/19 Admission Physical Exam S - Vital Signs Vital Signs: Vital Signs - 24 hr 06/05/19 10:18 Temperature 99.3 F Pulse Rate 70 Respiratory 20 Rate Blood Pressure 155/87 - Physical General Appearance: Yes: Moderate Distress, Tremorous, Irritable, Sweating HEENTM: Yes: EOMI, Hearing grossly Normal, Normal ENT Inspection, Normocephalic , Normal Voice, HUGO, Pharynx Normal, Tm's normal Respiratory: Yes: Chest Non-Tender, Lungs Clear, Normal Breath Sounds, No Respiratory Distress, No Accessory Muscle Use Neck: Yes: No masses,lesions,Nodules, Supple, Trachea in good position Breast: Yes: Within Normal Limits Cardiology: Yes: Regular Rhythm, Regular Rate, S1, S2 Abdominal: Yes: Normal Bowel Sounds, Flat, Soft, Increased Bowel Sounds Genitourinary: Yes: Within Normal Limits Back: Yes: Normal Inspection Musculoskeletal: Yes: Within Normal Limits, full range of Motion, Gait Steady, Pelvis Stable Extremities: Yes: Normal Capillary Refill, Normal Inspection, Normal Range of Motion, Non-Tender Neurological: Yes: bevel operator II-XII NML intact, Fully Oriented, Alert, Motor Strength 5/5, Normal Mood/Affect, Normal Response Integumentary: Yes: Normal Color, Dry, Warm Lymphatic: Yes: Within Normal Limits - Diagnostic (1) Alcohol dependence with uncomplicated withdrawal Current Visit: Yes Status: Acute (2) Dry skin Current Visit: Yes Status: Acute (3) Insomnia Current Visit: Yes Status: Acute (4) Nicotine dependence Current Visit: Yes Status: Acute Qualifiers: Nicotine product type: cigarettes Substance use status: in withdrawal Qualified Code(s): F17.213 - Nicotine dependence, cigarettes, with withdrawal (5) Non-compliant patient Current Visit: Yes Status: Acute (6) Opioid dependence with withdrawal Current Visit: Yes Status: Acute (7) Schizophrenia Current Visit: Yes Status: Acute (8) Weight loss Current Visit: Yes Status: Acute (9) Schizoaffective disorder Current Visit: Yes Status: Chronic Comment: According to old records.Chronically non adherent to OPD care + medications.Lost to follow- up.Patient declines to get back on medications. Cleared for Admission [facility] - Detox or Rehab [facility] Level of Care: Medically Managed Detox Regimen/Protocol: Methadone/Librium Claeared for Rehab Admission: No Screened but not Admitted - Documentation of Visit Screened but not Admitted: No Breathalyzer - Breathalyzer Breathalyzer: 0 Urine Drug Screen - Test Device Lot number: [id number] Expiration date: 03/15/21 - Control Is test valid?: Yes - Results Drug screen NEGATIVE: No Urine drug screen results: SUZANNE-Cocaine, MOP-Opiates Inpatient Rehab Admission - Rehab Decision to Admit Inpatient rehab admission?: No
[2019-06-05] MEDS ORDERED: BISMUTH SUBSALICYLATE 262 MG/15 ML BTL PO PRN (10:51)
[2019-06-05] MEDS ORDERED: cloNIDine HCL 0.1 MG TABLET PO PRN (10:51)
[2019-06-05] MEDS ORDERED: hydrOXYzine PAMOATE 25 MG CAPSULE (FP) PO PRN (10:51)
[2019-06-05] MEDS ORDERED: MAGNESIUM CITRATE 300 ML BOTTLE PO PRN (10:51)
[2019-06-05] MEDS ORDERED: ACETAMINOPHEN 325 MG TABLET (FP) PO PRN ×2 (10:51)
[2019-06-05] MEDS ORDERED: METHOCARBAMOL 500 MG TABLET PO PRN (10:51)
[2019-06-05] MEDS ORDERED: MENTHOL/PHENOL 1 EACH UD MM PRN (10:51)
[2019-06-05] MEDS ORDERED: MAGNESIUM HYDROX 2400MG/30ML ORAL SUSPENSION 30 ML CUP PO PRN (10:51)
[2019-06-05] MEDS ORDERED: MAG HYDROX/AL HYDROX/SIMETH 30 ML UNIT-DOSE CUP PO PRN (10:51)
[2019-06-05] MEDS ORDERED: MELATONIN 5 MG TABLETS PO PRN (10:51)
[2019-06-05] MEDS ORDERED: chlordiazePOXIDE HCL 25 MG CAPSULE PO PRN (10:51)
[2019-06-05] MEDS ORDERED: METHADONE HCL 10 MG TABLET (FOR DETOX USE ONLY) PO ONE (11:10)
[2019-06-05] MEDS: chlordiazePOXIDE HCL 25 MG CAPSULE PO SCH ×3 (11:56→22:22)
[2019-06-05] MEDS: NICOTINE 7 MG/24 HOURS TOPICAL PATCH TD SCH (11:56)
[2019-06-05] MEDS: CEFUROXIME AXETIL 250 MG TABLET PO SCH ×2 (15:04→22:22)
[2019-06-05 15:07] LABS: HEMATOCRIT 37.2 % (35.4-49); HEMOGLOBIN 12.2 GM/dL (11.7-16.9); MCH 30.2 pg (25.7-33.7); MCHC 32.8 g/dl (32.0-35.9); MEAN PLT VOLUME 10.4 fl (7.5-11.1); PLATELET COUNT 181 K/MM3 (134-434); RBC 4.04 M/mm3 (4.00-5.60); RDW 13.6 % (11.9-15.9); WHITE BLOOD COUNT 4.4 K/mm3 (4.0-10.0)
[2019-06-05 15:33] LABS: ALBUMIN 3.6 g/dl (3.4-5.0); BILIRUBIN,TOTAL 0.6 mg/dL (0.2-1); BLOOD UREA NITROGEN 8.5 mg/dL (7-18); CALCIUM 8.7 mg/dL (8.5-10.1); CREATININE 1.2 mg/dL (0.55-1.3); POTASSIUM 4.1 mmol/L (3.5-5.1); TOT PROT 7.3 g/dl (6.4-8.2)
--- NOTE | 2019-06-05 19:45 | PN ---
[facility] Progress Note Note: Psychiatric nurse practitioner note: Delayed note: Senior Manager [employer] attempted to see patient for completion of psychiatric consultation but patient was asleep and difficult to awaken. Psychiatric consultation deferred until tomorrow.
[2019-06-05] MEDS: THIAMINE HCL 100 MG TABLET (FP) PO SCH (22:23)
[2019-06-06] MEDS: chlordiazePOXIDE HCL 25 MG CAPSULE PO SCH ×4 (05:59→22:08)
[2019-06-06] MEDS: IBUPROFEN 400 MG TABLET (FP) PO PRN ×2 (06:02→17:39)
[2019-06-06] MEDS ORDERED: METHADONE HCL 10 MG TABLET (FOR DETOX USE ONLY) ONE (09:07)
[2019-06-06] MEDS ORDERED: METHADONE HCL 5 MG TABLET (FOR DETOX USE ONLY) ONE (09:08)
[2019-06-06] MEDS ORDERED: METHADONE (DETOX) 20 MG, METHADONE (DETOX) 5 MG PO ONE (10:00)
[2019-06-06] MEDS: PRENATAL VITAMINS W/ FOLIC ACID TABLET (FP) PO SCH (10:32)
[2019-06-06] MEDS: CEFUROXIME AXETIL 250 MG TABLET PO SCH ×2 (10:33→22:11)
[2019-06-06] MEDS: NICOTINE 7 MG/24 HOURS TOPICAL PATCH TD SCH (10:36)
[2019-06-06] MEDS: NICOTINE POLACRILEX 2 MG GUM BUC PRN ×3 (10:42→23:09)
--- NOTE | 2019-06-06 11:49 | PN ---
S CIWA - CIWA Score Nausea/Vomitin-Mild Nausea/No Vomiting Muscle Tremors: None Anxiety: 1-Mildly Anxious Agitation: 1-Slight > Activity Paroxysmal Sweats: 1-Minimal Palms Moist Orientation: 0-Oriented Tacttile Disturbances: 0-None Auditory Disturbances: 0-None Visual Disturbances: 0-None Headache: 0-None Present CIWA-Ar Total Score: 4 S COWS - Scale Resting Pulse: 0= [place] 80 or Below Sweatin=Flushed/Facial Moisture Restless Observation: 0= Sits Still Pupil Size: 0= Normal to Room Light Bone or Joint Aches: 0= None Runny Nose/ Eye Tearin= None GI Upset > 30mins: 2= Nausea/Diarrhea Tremor Observation of Outstretched Hands: 0= None Yawning Observation: 0= None Anxiety or Irritability: 1=Feels Anxious/Irritable Goose Flesh Skin: 0=Smooth Skin COWS Score: 5 S Progress Note (SOAP) Subjective: Left dorsum of hand pain Objective: 06/06/19 11:46 Laboratory Results - last 24 hr 06/05/19 06/05/19 06/05/19 11:05 11:05 11:05 WBC 4.4 RBC 4.04 Hgb 12.2 Hct 37.2 MCV 92.0 MCH 30.2 MCHC 32.8 RDW 13.6 Plt Count 181 MPV 10.4 Sodium 136 Potassium 4.1 Chloride 104 Carbon Dioxide 26 Anion Gap 6 L BUN 8.5 Creatinine 1.2 Est GFR (CKD-EPI)AfAm 82.96 Est GFR (CKD-EPI)NonAf 71.58 Random Glucose 98 Calcium 8.7 Total Bilirubin 0.6 AST 34 ALT 32 Alkaline Phosphatase 59 Total Protein 7.3 Albumin 3.6 HIV 1&2 Antibody Screen Negative HIV P24 Antigen Negative Vital Signs - 24 hr 06/05/19 06/05/19 06/06/19 17:32 21:01 00:51 Temperature 98.6 F Pulse Rate 85 69 Respiratory 18 18 18 Rate Blood Pressure 139/86 107/67 06/06/19 06/06/19 06/06/19 04:02 05:41 08:55 Temperature 98.9 F 98.3 F Pulse Rate 76 74 Respiratory 18 18 18 Rate Blood Pressure 123/77 117/70 PE Gnl: WDWN, in bed, in mild distress due to hand pain Mental status: awake, alert, nl language Ext: slight swelling over dorsum of left hand Coord: nl Assessment: 06/06/19 11:47 1. Opioid use disorder 2. Alcohol use disorder 3. Left hand cellulits Plan: 1. continue withdrawl protocol: methadone, librium 2. on Ceftin bid, continue
[2019-06-06] MEDS ORDERED: PNEUMOC 13-VAL CONJ-DIP CRM/PF 0.5 ML DISP.SYRIN IM ONE (12:00)
[2019-06-06] MEDS ORDERED: PNEUMOCOCCAL 23 VACCINE 0.5 ML VIAL IM ONE (12:00)
--- NOTE | 2019-06-06 13:32 | CONSULT ---
[facility] Psychiatric Consult - Data Date of interview: 06/06/19 Admission source: [facility] Identifying data: Patient is approached at bedside for the psychiatric interview (medical students in attendance). Found awake. Mr Pineda declines evaluation. Nursing staff is made aware.
--- NOTE | 2019-06-06 21:00 | PN ---
[facility] Progress Note Note: Patient c/o generalized itch and dry skin. States has been present for a long time. Patient w/ increased swelling, warmth and erythema (L) hand w/ tenderness upon palpation. Radial pulse +. Cap refil wnl. Small flat, lesion gluteal fold (R) area w/ whitish granulation tissues. No increased discharge, warmth, erythema, or induration. C/o constipation. Abd soft/non-tender. BS+ Dry oral mucous membranes. Noted patient was started on antibiotics on 06/05/19. Itching of skin preceded antibiotics. No rash noted on skin. Skin is very dry w/ decreased turgor. Vital Signs - 24 hr 06/06/19 06/06/19 06/06/19 00:51 04:02 05:41 Temperature 98.9 F Pulse Rate 76 Respiratory 18 18 18 Rate Blood Pressure 123/77 06/06/19 06/06/19 06/06/19 08:55 17:50 21:15 Temperature 98.3 F 98.6 F 98.0 F Pulse Rate 74 86 83 Respiratory 18 18 18 Rate Blood Pressure 117/70 105/72 112/72 Assess: Cellulitis (L) hand Dry skin w/ itch Dehydration symptoms Plan: Continue ceftin. Encourage increased fluid intake. Encouraged increased flushing skin between gluteal folds. Aveeno soap. Colace 100 mg PO TID
[2019-06-06] MEDS ORDERED: COLLOIDAL OATMEAL 1 BAR EACH TP PRN (21:01)
[2019-06-06] MEDS ORDERED: MINERAL OIL/PETROLAT/WATER TOPICAL CREAM 454 GM JAR TP PRN (21:01)
[2019-06-06] MEDS: THIAMINE HCL 100 MG TABLET (FP) PO SCH (22:09)
[2019-06-06] MEDS: DOCUSATE SODIUM 100 MG CAPSULE (FP) PO SCH (22:54)
[2019-06-07] MEDS: NICOTINE POLACRILEX 2 MG GUM BUC PRN (04:39)
[2019-06-07] MEDS ORDERED: chlordiazePOXIDE HCL 25 MG CAPSULE PO SCH (05:00)
[2019-06-07] MEDS: DOCUSATE SODIUM 100 MG CAPSULE (FP) PO SCH (06:17)
[2019-06-07 09:28] VITALS: BP 125/82; PULSE 71; TEMP 97.2
[2019-06-07] MEDS ORDERED: METHADONE HCL 10 MG TABLET (FOR DETOX USE ONLY) PO ONE (10:00)
[2019-06-07] MEDS: PRENATAL VITAMINS W/ FOLIC ACID TABLET (FP) PO SCH (10:11)
[2019-06-07] MEDS: CEFUROXIME AXETIL 250 MG TABLET PO SCH (10:11)
--- NOTE | 2019-06-07 13:46 | DS ---
[facility] Detox Discharge Summary Admission Date: 06/05/19 Discharge Date: 06/07/19 (Pt left AMA) - History Present History: Alcohol Dependence, Opioid Dependence Additional Comments: As per H&P: "48 year old male with history of back pain and spinal surgery. He has opioid dependence with withdrawals, and alcohol dependence with withdrawals: Heroin: 2 bundles IV, started at 19, last used yesterday. Overdosed multiple time and last one 2017. Alcohol: 2 pints whisky daily, has had blackout and falls , started age 8, he last blacked out 2 weeks ago. Denies seizures with withdrawals. Nicotine: 1 ppd, started at 14 years old" Psych: Depression and Schizoaffective Disorder on no meds for over 1 month". Pt left AMA. Pt did not complete the detox protocol. Withdrawal symptoms persist. Pt states, "i just have to go". An attempt to let pt stay and complete the detox protocol failed. Pt is encouraged to follow-up with an outpatient CD program and also to follow-up with his pmd. Pt verbalized understanding of the information given. Pt is alert and oriented x3 and in no acute respiratory distress. Pertinent Past History: h/o alcohol and opioid use disorder. - Physical Exam Results Vital Signs: Vital Signs Temperature 97.2 F L 06/07/19 09:14 Pulse Rate 71 06/07/19 09:14 Respiratory Rate 18 06/07/19 09:14 Blood Pressure 125/82 06/07/19 09:14 O2 Sat by Pulse Oximetry (%) Vital Signs 06/07/19 06/07/19 07:26 09:14 Temperature 97.7 F 97.2 F L Pulse Rate 64 71 Respiratory 18 18 Rate Blood Pressure 115/74 125/82 Laboratory Last Values WBC 4.4 K/mm3 (4.0-10.0) 06/05/19 11:05 RBC 4.04 M/mm3 (4.00-5.60) 06/05/19 11:05 Hgb 12.2 GM/dL (11.7-16.9) 06/05/19 11:05 Hct 37.2 % (35.4-49) 06/05/19 11:05 MCV 92.0 fl (80-96) 06/05/19 11:05 MCH 30.2 pg (25.7-33.7) 06/05/19 11:05 MCHC 32.8 g/dl (32.0-35.9) 06/05/19 11:05 RDW 13.6 % (11.9-15.9) 06/05/19 11:05 Plt Count 181 K/MM3 (134-434) 06/05/19 11:05 MPV 10.4 fl (7.5-11.1) 06/05/19 11:05 Sodium 136 mmol/L (136-145) 06/05/19 11:05 Potassium 4.1 mmol/L (3.5-5.1) 06/05/19 11:05 Chloride 104 mmol/L (98-107) 06/05/19 11:05 Carbon Dioxide 26 mmol/L (21-32) 06/05/19 11:05 Anion Gap 6 MMOL/L (8-16) L 06/05/19 11:05 BUN 8.5 mg/dL (7-18) 06/05/19 11:05 Creatinine 1.2 mg/dL (0.55-1.3) 06/05/19 11:05 Est GFR (CKD-EPI)AfAm 82.96 06/05/19 11:05 Est GFR (CKD-EPI)NonAf 71.58 06/05/19 11:05 Random Glucose 98 mg/dL (74-106) 06/05/19 11:05 Calcium 8.7 mg/dL (8.5-10.1) 06/05/19 11:05 Total Bilirubin 0.6 mg/dL (0.2-1) 06/05/19 11:05 AST 34 U/L (15-37) 06/05/19 11:05 ALT 32 U/L (13-61) 06/05/19 11:05 Alkaline Phosphatase 59 U/L (45-117) 06/05/19 11:05 Total Protein 7.3 g/dl (6.4-8.2) 06/05/19 11:05 Albumin 3.6 g/dl (3.4-5.0) 06/05/19 11:05 RPR Titer Nonreactive (NONREACTIVE) 06/05/19 11:05 HIV 1&2 Antibody Screen Negative 06/05/19 11:05 HIV P24 Antigen Negative 06/05/19 11:05 Labs noted. Pertinent Admission Physical Exam Findings: withdrawal symptoms. - Treatment Hospital Course: Detox Protocol Followed - Medication Discharge Medications: Ambulatory Orders NK [No Known Home Medication] 05/10/17 - Diagnosis (1) Alcohol dependence with uncomplicated withdrawal Status: Acute (2) Hyperglycemia Status: Chronic (3) Cannabis dependence Status: Chronic (4) Cocaine dependence Status: Chronic Qualifiers: Substance use status: uncomplicated Qualified Code(s): F14.20 - Cocaine dependence, uncomplicated (5) Low back pain Status: Chronic Qualifiers: Chronicity: chronic Back pain laterality: unspecified Sciatica presence: unspecified whether sciatica present Qualified Code(s): M54.5 - Low back pain ; G89.29 - Other chronic pain - AMA Did Patient Leave Against Medical Advice: Yes
[2019-06-08] MEDS ORDERED: chlordiazePOXIDE HCL 10 MG CAPSULE PO PRN
[2019-06-08] MEDS ORDERED: chlordiazePOXIDE HCL 10 MG CAPSULE PO SCH (05:00)
[2019-06-08] MEDS ORDERED: METHADONE (DETOX) 10 MG, METHADONE (DETOX) 5 MG PO ONE (10:00)
[2019-06-09] MEDS ORDERED: chlordiazePOXIDE HCL 10 MG CAPSULE PO SCH (05:00)
[2019-06-09] MEDS ORDERED: METHADONE HCL 10 MG TABLET (FOR DETOX USE ONLY) PO ONE (10:00)
[2019-06-10] MEDS ORDERED: chlordiazePOXIDE HCL 10 MG CAPSULE PO ONE (05:00)
[2019-06-10] MEDS ORDERED: METHADONE HCL 5 MG TABLET (FOR DETOX USE ONLY) PO ONE (06:00)
== END 2019-06-07 10:17 | disposition left against medical advice (07) | DRG 770 ==
LOC: YASAS 09:23 → Y3N 11:06
PROVIDERS: ADMIT Allergy & Immunology; ATTEND Allergy & Immunology
PROC: HZ2ZZZZ Detoxification Services for Substance Abuse Treatment (ICD-10-PCS; principal; 2019-06-05)
DX: F10.230 Alcohol dependence with withdrawal, uncomplicated (principal); F11.23 Opioid dependence with withdrawal; F14.20 Cocaine dependence, uncomplicated; F12.20 Cannabis dependence, uncomplicated; F17.210 Nicotine dependence, cigarettes, uncomplicated; F25.9 Schizoaffective disorder, unspecified; F32.9 Major depressive disorder, single episode, unspecified; L03.114 Cellulitis of left upper limb; L85.3 Xerosis cutis; L29.8 Other pruritus; R73.9 Hyperglycemia, unspecified; M54.5 Low back pain; G89.29 Other chronic pain; Z91.013 Allergy to seafood; Z91.018 Allergy to other foods; Z59.0 Homelessness
CPT/HCPCS: 36415; 80053; 85027; 86593; 87389

== ENCOUNTER 2021-05-05 14:27 | Inpatient (IN) | payer OTHER ==
[2021-05-05] MEDS ORDERED: NICOTINE POLACRILEX 4 MG GUM BUC PRN (15:59)
[2021-05-05] MEDS ORDERED: MAGNESIUM CITRATE 300 ML BOTTLE PO PRN (15:59)
[2021-05-05] MEDS ORDERED: MAGNESIUM HYDROX 2400MG/30ML ORAL SUSPENSION 30 ML CUP PO PRN (15:59)
[2021-05-05] MEDS ORDERED: ONDANSETRON *ODT* 4 MG TABLET SL PRN (15:59)
[2021-05-05] MEDS ORDERED: MENTHOL/PHENOL 1 EACH UD MM PRN (15:59)
[2021-05-05] MEDS ORDERED: BISMUTH SUBSALICYLATE 524 MG/30 ML PO PRN (15:59)
[2021-05-05] MEDS ORDERED: MAG HYDROX/AL HYDROX/SIMETH 30 ML UNIT-DOSE CUP PO PRN (15:59)
[2021-05-05] MEDS ORDERED: ACETAMINOPHEN 325 MG TABLET (FP) PO PRN ×2 (15:59)
[2021-05-05] MEDS ORDERED: chlordiazePOXIDE HCL 25 MG CAPSULE PO PRN (15:59)
[2021-05-05] MEDS ORDERED: IBUPROFEN 400 MG TABLET (FP) PO PRN (15:59)
[2021-05-05 19:30] VITALS: BMI 22.8
[2021-05-05] MEDS: chlordiazePOXIDE HCL 25 MG CAPSULE PO SCH ×2 (21:58→22:16)
[2021-05-05] MEDS: hydrOXYzine PAMOATE 25 MG CAPSULE (FP) PO SCH ×2 (21:59→22:16)
[2021-05-05] MEDS: VITAMINS A AND D TOPICAL OINTMENT 60 GM TUBE TP SCH ×2 (21:59→23:08)
[2021-05-05] MEDS: MELATONIN 5 MG TABLETS PO SCH (22:17)
[2021-05-05] MEDS: TOLNAFTATE 1% CREAM 15 GM TUBE TP SCH (22:17)
[2021-05-05] MEDS: PRENATAL VITAMINS W/ FOLIC ACID TABLET (FP) PO SCH (22:17)
[2021-05-05] MEDS: THIAMINE HCL 100 MG TABLET (FP) PO SCH (22:26)
[2021-05-06] MEDS: hydrOXYzine PAMOATE 25 MG CAPSULE (FP) PO SCH ×5 (05:57→22:46)
[2021-05-06] MEDS: chlordiazePOXIDE HCL 25 MG CAPSULE PO SCH ×4 (05:57→22:44)
[2021-05-06] MEDS: VITAMINS A AND D TOPICAL OINTMENT 60 GM TUBE TP SCH ×4 (05:59→23:16)
[2021-05-06 09:54] LABS: HEMATOCRIT 34.3 % (35.4-49); HEMOGLOBIN 10.9 GM/dL (11.7-16.9); MCH 28.6 pg (25.7-33.7); MCHC 31.7 g/dl (32.0-35.9); MEAN CELL VOLUME 90.1 fl (80-96); MEAN PLT VOLUME 9.8 fl (7.5-11.1); PLATELET COUNT 237 10^3/uL (134-434); RBC 3.81 M/mm3 (4.00-5.60); RDW 13.9 % (11.9-15.9); WHITE BLOOD COUNT 5.1 K/mm3 (4.0-10.0)
[2021-05-06 09:56] LABS: CHLORIDE 110 mmol/L (98-107); SODIUM 145 mmol/L (136-145)
[2021-05-06 09:58] LABS: ALBUMIN 2.9 g/dl (3.4-5.0); ANION GAP 6 MMOL/L (8-16); CALCIUM 8.6 mg/dL (8.5-10.1); CO2 29 mmol/L (21-32); GLUCOSE,RANDOM 124 mg/dL (74-106)
[2021-05-06 10:01] LABS: CREATININE 1.1 mg/dL (0.55-1.3); SGOT/AST 14 U/L (15-37); SGPT/ALT 16 U/L (13-61)
[2021-05-06 10:03] LABS: BILIRUBIN,TOTAL 0.1 mg/dL (0.2-1); TOT PROT 6.4 g/dl (6.4-8.2)
[2021-05-06 10:04] LABS: ALK PHOS 52 U/L (45-117)
[2021-05-06] MEDS: METHOCARBAMOL 500 MG TABLET PO PRN (11:08)
[2021-05-06] MEDS: PRENATAL VITAMINS W/ FOLIC ACID TABLET (FP) PO SCH (11:08)
[2021-05-06] MEDS: TOLNAFTATE 1% CREAM 15 GM TUBE TP SCH ×2 (11:10→22:45)
[2021-05-06] MEDS: ASPIRIN 325 MG TABLET PO SCH (11:10)
[2021-05-06] MEDS ORDERED: methaDONE HCL 10 MG TABLET PO SCH (12:30)
[2021-05-06] MEDS ORDERED: methaDONE HCL 40 MG DISPERSABLE TABLET ONE (13:25)
[2021-05-06] MEDS ORDERED: methaDONE HCL 10 MG TABLET ONE (13:25)
[2021-05-06] MEDS: methaDONE 40 MG, methaDONE 10 MG PO SCH (13:45)
[2021-05-06] MEDS: NICOTINE 10 MG CARTRIDGE (INHALER) IH PRN (19:18)
[2021-05-06] MEDS: THIAMINE HCL 100 MG TABLET (FP) PO SCH (22:39)
[2021-05-06] MEDS: MIRTAZAPINE 15 MG TABLET (FP) PO SCH (22:39)
[2021-05-06] MEDS: risperiDONE 1 MG TABLET PO SCH (22:39)
[2021-05-06] MEDS: MELATONIN 5 MG TABLETS PO SCH (22:45)
[2021-05-07] MEDS ORDERED: methaDONE HCL 10 MG TABLET ONE (04:19)
[2021-05-07] MEDS ORDERED: methaDONE HCL 40 MG DISPERSABLE TABLET ONE (04:19)
[2021-05-07] MEDS: hydrOXYzine PAMOATE 25 MG CAPSULE (FP) PO SCH ×5 (05:29→22:29)
[2021-05-07] MEDS: methaDONE 40 MG, methaDONE 10 MG PO SCH (05:29)
[2021-05-07] MEDS: chlordiazePOXIDE HCL 25 MG CAPSULE PO SCH ×4 (05:30→22:31)
[2021-05-07] MEDS: NICOTINE 10 MG CARTRIDGE (INHALER) IH PRN (05:36)
[2021-05-07] MEDS: VITAMINS A AND D TOPICAL OINTMENT 60 GM TUBE TP SCH ×3 (07:25→18:38)
[2021-05-07] MEDS: PRENATAL VITAMINS W/ FOLIC ACID TABLET (FP) PO SCH (10:12)
[2021-05-07] MEDS: METHOCARBAMOL 500 MG TABLET PO PRN (10:13)
[2021-05-07] MEDS: TOLNAFTATE 1% CREAM 15 GM TUBE TP SCH ×2 (10:14→22:29)
[2021-05-07] MEDS: ASPIRIN 325 MG TABLET PO SCH (13:54)
[2021-05-07] MEDS: risperiDONE 1 MG TABLET PO SCH (22:28)
[2021-05-07] MEDS: MIRTAZAPINE 15 MG TABLET (FP) PO SCH (22:29)
[2021-05-07] MEDS: THIAMINE HCL 100 MG TABLET (FP) PO SCH (22:29)
[2021-05-07] MEDS: MELATONIN 5 MG TABLETS PO SCH (22:31)
[2021-05-08] MEDS ORDERED: chlordiazePOXIDE HCL 10 MG CAPSULE PO PRN
[2021-05-08] MEDS: VITAMINS A AND D TOPICAL OINTMENT 60 GM TUBE TP SCH ×3 (00:26→12:21)
[2021-05-08] MEDS ORDERED: methaDONE HCL 10 MG TABLET ONE (04:27)
[2021-05-08] MEDS ORDERED: methaDONE HCL 40 MG DISPERSABLE TABLET ONE (04:27)
[2021-05-08] MEDS: methaDONE 40 MG, methaDONE 10 MG PO SCH (05:26)
[2021-05-08] MEDS: hydrOXYzine PAMOATE 25 MG CAPSULE (FP) PO SCH ×3 (05:27→13:04)
[2021-05-08] MEDS: chlordiazePOXIDE HCL 10 MG CAPSULE PO SCH ×2 (05:27→10:15)
[2021-05-08] MEDS: TOLNAFTATE 1% CREAM 15 GM TUBE TP SCH (10:15)
[2021-05-08] MEDS: PRENATAL VITAMINS W/ FOLIC ACID TABLET (FP) PO SCH (10:15)
[2021-05-08] MEDS: METHOCARBAMOL 500 MG TABLET PO PRN (10:15)
[2021-05-08] MEDS: ASPIRIN 325 MG TABLET PO SCH (12:21)
[2021-05-08 13:43] VITALS: BP 131/76; PULSE 81; TEMP 98.2
[2021-05-09] MEDS ORDERED: chlordiazePOXIDE HCL 10 MG CAPSULE PO SCH (05:00)
[2021-05-10] MEDS ORDERED: chlordiazePOXIDE HCL 10 MG CAPSULE PO ONE (05:00)
== END 2021-05-08 02:34 | disposition left against medical advice (07) | DRG 770 ==
LOC: YASAS 14:27 → Y6N 20:00
PROVIDERS: ADMIT Allergy & Immunology; ATTEND Allergy & Immunology
PROC: HZ2ZZZZ Detoxification Services for Substance Abuse Treatment (ICD-10-PCS; principal; 2021-05-05)
DX: F11.23 Opioid dependence with withdrawal (principal); F10.230 Alcohol dependence with withdrawal, uncomplicated; F14.20 Cocaine dependence, uncomplicated; F12.20 Cannabis dependence, uncomplicated; F17.210 Nicotine dependence, cigarettes, uncomplicated; F25.9 Schizoaffective disorder, unspecified; F19.24 Other psychoactive substance dependence with psychoactive substance-induced mood disorder; F34.1 Dysthymic disorder; I10 Essential (primary) hypertension; R63.4 Abnormal weight loss; Z68.22 Body mass index [BMI] 22.0-22.9, adult; Z91.013 Allergy to seafood
CPT/HCPCS: 36415; 80053; 82550; 84484; 85027; 86780; 93005; 93010; C9803; J2794; U0003; U0005